=== PATIENT | male | born 1970 | race Caucasian/White ===

== ENCOUNTER 2016-09-06 15:25 | Inpatient (IN) | payer MEDICAID ==
--- NOTE | 2016-09-05 19:45 | NUR ---
Admitted from ED, with chief complaint of LEFT ARM NUMB, HALF LIP NUMB, ABD PAIN, CHEST PAIN, LAST ALCOHOL 7HRS AGO, 46 y/o ,Male, Anxious,saying he wants something for pain, Ativan and ice chips. Informed him orders need to check first. He said " the doctor said I'm ok to have ice chips." Will check the order. Initial assessment done. Vital signs checked. Pt states a, 8/10 chest, abd pain but denies shortness of breath. Plan of care discussed. Pt oriented to call light, bed, phone,television, bathroom, smoking policy, visiting hours, procedures, ID bracelet on. Belongings list checked. Pt wants to keep all his belongings. Informed him that his medication bottle will be kept in the Pharmacy and will be return to him when he gets discharge. Pt agreed. MRSA swab collected.
[~2016-09-06] VITALS: Ht 170.2 cm; Wt 77.1 kg
[2016-09-06 15:33] VITALS: BP 123/91
--- NOTE | 2016-09-06 15:34 | NUR ---
PT PLACED IN BED 5 BY EMS.
--- NOTE | 2016-09-06 15:45 | NUR ---
46/M biba for evaluatin of alcohol intoxication. Pt called 911 with c/o abdominal pain. Pt states "My pancreas hurts and my chest hurts." Patient found hitting his chest and states that makes it feel better. Patient states he drank a pint of alcohol and 5 beers today. Patient denies n/v/d. Patient is AOX3, with slurred speech. Pt is irritable but will follow commands.
--- NOTE | 2016-09-06 16:02 | NUR ---
PATIENT IS A 46 YO MALE BIB EMS FROM [facility]ELD FOR ETOH AND ABDOMINAL PAIN, PATIENT IS AWAKE ON ARRIVAL BUT CONFUSED, UNABLE TO STATE PURPOSE TO BED 5 MD EVAL PENDING.
[2016-09-06] MEDS ORDERED: NACL 0.9% 1,000 ML IV ONE (16:30)
[2016-09-06] MEDS ORDERED: HALOPERIDOL IM 5 MG/ML VIAL IM ONE (16:30)
[2016-09-06] MEDS ORDERED: MULTIVITAMIN-12 10 ML, THIAMINE 100 MG, MAGNESIUM SULFATE 50% 2,000 MG, FOLIC ACID 5 MG... IV ONE (16:30)
[2016-09-06] MEDS ORDERED: diphenhydrAMINE 50 MG/ML VIAL IM ONE (16:30)
--- NOTE | 2016-09-06 16:54 | NUR ---
X-Ray at bedside.
--- NOTE | 2016-09-06 17:18 | NUR ---
Patient appears to be resting comfortably in bed. Vital Signs within normal limits. Respirations even and unlabored. Bed placed in lowest positions. Both side rails up. Pt instructed to call if he needs anything. Pt verbalized understanding. No visible signs of distress noted.
[2016-09-06] MEDS ORDERED: MORPHINE SULFATE 4 MG/ML SYR IVP ONE (17:20)
[2016-09-06] MEDS ORDERED: LIBRIUM25 MG PO (17:25)
--- NOTE | 2016-09-06 18:17 | NUR ---
Called to give report and charge nurse Karuna will call back for report.
--- NOTE | 2016-09-06 18:32 | NUR ---
Note onofre in EDM - 09/06/16 at 1833 by FAY Patient will be admitted to care of Dr. Gee. Admited to M/S. Will go to room 118. Belongings list completed. Report to Karuna.
--- NOTE | 2016-09-06 18:34 | NUR ---
Patient will be admitted to care of Dr. Gee. Admited to M/S. Will go to room 118. Belongings list completed. Report to Karuna.
[2016-09-06] MEDS ORDERED: MORPHINE SULFATE 2 MG/ML SYR IVP PRN (19:10)
[2016-09-06] MEDS ORDERED: HYDROcodone/APAP 5/325 MG 1 TAB TAB PO PRN (19:10)
[2016-09-06] MEDS ORDERED: ONDANSETRON 4 MG/2 ML VIAL IVP PRN (19:10)
[2016-09-06] MEDS ORDERED: ACETAMINOPHEN 325 MG TAB PO PRN (19:10)
[2016-09-06 20:00] VITALS: BP 121/68
[2016-09-06] MEDS: LORazepam 2 MG/ML VIAL IVP PRN (21:18)
[2016-09-06] MEDS ORDERED: PNEUMOCOCCAL VACCINE 23 MCG/0.5 ML VIAL IMVAC SCH (22:00)
--- NOTE | 2016-09-07 | NUR ---
SEEN PT ASLEEP BUT EASILY AROUSABLE. IVF INFUSING WELL. WILL CONTINUE TO MONITOR.
[2016-09-07] MEDS: DEXT 5% /NACL 0.9% 1,000 ML IV SCH ×3 (00:30→11:09)
[2016-09-07 04:00] VITALS: BP 127/79
--- NOTE | 2016-09-07 04:10 | NUR ---
PT CALLED ASKING FOR ATIVAN. SEEN PT AWAKE, APPEARS FLUSHED AND APPEARS SHAKING/TREMORS. VITAL SIGNS CHECKED. TEMP 99.9 WILL RENDER COOLING MEASURES AND ADMINISTER ATIVAN ORDERED. SAFETY REINFORCED. WILL CONTINUE TO MONITOR.
[2016-09-07] MEDS: LORazepam 2 MG/ML VIAL IVP PRN ×2 (04:11→11:03)
[2016-09-07] MEDS ORDERED: INFLUENZA VIRUS VACCINE QUAD 0.5 ML SYR IMVAC SCH (07:25)
[2016-09-07] MEDS ORDERED: PNEUMOCOCCAL VACCINE 23 MCG/0.5 ML VIAL IMVAC SCH (07:25)
--- NOTE | 2016-09-07 07:30 | NUR ---
RECEIVED ON BED AAOX4, NO SOB NOTED. NO C/O PAIN AT THIS TIME. IV TO LEFT FOREARM PATENT AND INTACT. CHEST CLEAR. ABDOMEN SOFT, BOWEL SOUNDS PRESENT. NPO MAINTAINED. INSTRUCTED PT TO CALL FOR ASSISTANCE, CALL LIGHT WITHIN REACH, PT VERBALIZED UNDERSTANDING.
[2016-09-07 08:00] VITALS: BP 131/74
--- NOTE | 2016-09-07 08:14 | NUR ---
PATIENT HAS BEEN SCREENED AND CATEGORIZED MODERATE NUTRITION RISK. PATIENT WILL BE SEEN WITHIN 3-5 DAYS OF ADMISSION. 09/09/16-09/11/[address]
[2016-09-07] MEDS: chlordiazePOXIDE 25 MG CAP PO SCH ×2 (08:52→13:10)
[2016-09-07] MEDS ORDERED: FOLIC ACID 1 MG TAB PO SCH (09:00)
[2016-09-07] MEDS ORDERED: THIAMINE 100 MG TAB PO SCH (09:00)
[2016-09-07] MEDS ORDERED: MULTIVITAMIN 1 TAB PO SCH (09:00)
--- NOTE | 2016-09-07 11:00 | NUR ---
PT AMBULATING IN THE HALLWAY COUPLE TIMES. SHAKING STILL NOTED. ON FALL PRECAUTIONS. ACTIVITY TOLERATED WELL.
--- NOTE | 2016-09-07 14:14 | NUR ---
CM NOTE INITIAL REVIEW FAXED TO [facility] / FAX# [phone]
--- NOTE | 2016-09-07 14:45 | NUR ---
PT WANTS TO GO HOME AGAINST MEDICAL ADVICE. PT STATED HE FELT BETTER AND DO NOT HAVE ANYMORE ABDOMINAL PAIN. AMA AND HOMELESS WAIVER SIGNED. RISKS EXPLAINED TO PT, VERBALIZED UNDERSTANDING. PT STATED HE WILL GO STRAIGHT TO [facility]. NO TREMORS AND SHAKING NOTED. Ann-Marie KENDALL, AWAITING FOR CALL BACK.
--- NOTE | 2016-09-07 14:50 | NUR ---
PT REFUSED PNA AND FLU VACCINE.
--- NOTE | 2016-09-07 14:55 | NUR ---
ARM BANDS AND IV REMOVED, CANNULA TIP INTACT. PT'S HOME MEDS FROM PHARMACY RETURNED TO PT. PT STATED HE CAN NOT WAIT FOR DR. SPENCER TO CALL BACK. ESCORTED PT TO THE FRONT LOBBY, AMBULATORY AND IN STABLE CONDITION. NO COMPLAINTS MADE. PT IS DISCHARGED AGAINST MEDICAL ADVISE.
--- NOTE | 2016-09-07 14:56 | NUR ---
PT REFUSED PNA AND FLU VACCINE. RISKS AND BENEFITS EXPLAINED TO PT, PT VERBALIZED UNDERSTANDING.
--- NOTE | 2016-09-07 15:12 | NUR ---
PAGED DR. MATHEWS TO INFORM HIM REGARDING PT WENT AMA. AWAITING FOR CALL BACK.
--- NOTE | 2016-09-07 16:00 | NUR ---
Ann-Marie KENDALL AND DR. Robyn MATHEWS CALLED BACK AND MADE AWARE OF AMA.
== END 2016-09-07 14:55 | disposition left against medical advice (07) | DRG 282 ==
LOC: MED 15:25 → MTU 18:01
PROVIDERS: ADMIT Preventive Medicine Preventive Medicine/Occupational Environmental Medicine; ATTEND Preventive Medicine Preventive Medicine/Occupational Environmental Medicine
DX: K85.20 Alcohol induced acute pancreatitis without necrosis or infection (principal); D69.6 Thrombocytopenia, unspecified; F10.229 Alcohol dependence with intoxication, unspecified; E83.52 Hypercalcemia; R50.9 Fever, unspecified; D64.9 Anemia, unspecified; Y90.7 Blood alcohol level of 200-239 mg/100 ml; R74.0 Nonspecific elevation of levels of transaminase and lactic acid dehydrogenase [LDH]

== ENCOUNTER 2017-06-01 12:27 | Inpatient (IN) | payer MEDICAID ==
[~2017-06-01] VITALS: Ht 170.2 cm; Wt 72.6 kg
[~2017-06-01 12:27] MED LIST: LIB25 PO
[2017-06-01 12:41] VITALS: BP 131/74
--- NOTE | 2017-06-01 12:46 | NUR ---
Patient ambulatd to bed 02.
--- NOTE | 2017-06-01 12:48 | NUR ---
47/M BIB SELF C/O MID ABDOMINAL PAIN , N/V & SORE THROAT X 1WK . HX PANCREATITIS, ALCOHOL WITHDRAWL. SKIN IS PINK/WARM/DRY; AAOX4 WITH EVEN AND STEADY GAIT; LUNGS CLEAR BL; HR EVEN AND REGULAR; PT DENIES ANY FEVER, CP, SOB, OR COUGH AT THIS TIME; PATIENT STATES PAIN OF 10/10 AT THIS TIME; PATIENT POSITIONED FOR COMFORT; HOB ELEVATED; BEDRAILS UP X2; BED DOWN. ER MD MADE AWARE OF PT STATUS.
--- NOTE | 2017-06-01 13:09 | NUR ---
ER MD DR. BERNAL EVALUATING PT AT BEDSIDE.
--- NOTE | 2017-06-01 13:16 | NUR ---
XRAY at bedside.
[2017-06-01] MEDS ORDERED: HYDROmorphone 1 MG/ML AMP IVP ONE (13:25)
[2017-06-01] MEDS ORDERED: ONDANSETRON 4 MG/2 ML VIAL IVP ONE (13:25)
[2017-06-01 13:39] LABS: BASOPHILS # (AUTO) 0.2 K/uL (0.00-0.22); BASOPHILS % (AUTO) 3.5 % (0.0-2.0); EOSINOPHILS # (AUTO) 0.2 K/uL (0-0.4); HEMATOCRIT 28.5 % (36-52); HEMOGLOBIN 9.1 g/dL (12.0-18.0); LYMPHOCYTES # (AUTO) 1.3 K/uL (2.0-11.5); LYMPHOCYTES % (AUTO) 27.3 % (20.5-51.1); MEAN CORPUSCULAR HEMOGLOBIN 25 pg (27-31); MEAN CORPUSCULAR HGB CONC 32 g/dL (33-37); MEAN CORPUSCULAR VOLUME 79 fL (80-94); MONOCYTES # (AUTO) 0.5 K/uL (0.8-1.0); MONOCYTES % (AUTO) 10.4 % (1.7-9.3); NEUTROPHILS # (AUTO) 2.7 K/uL (1.8-7.7); NEUTROPHILS % (AUTO) 53.8 % (42.2-75.2); PLATELET COUNT (AUTO) 223 K/uL (140-450); RED BLOOD CELL COUNT(AUTO) 3.61 MIL/uL (4.20-6.10); RED CELL DISTRIBUTION WIDTH 22.5 % (11.6-13.7); WHITE BLOOD COUNT (AUTO) 4.9 K/uL (4.8-10.8)
[2017-06-01 13:40] LABS: ANION GAP 15.6 (8-16); CARBON DIOXIDE 23.9 mmol/L (21-32); CREATININE 0.8 mg/dL (0.7-1.3); POTASSIUM 3.5 mmol/L (3.5-5.1)
[2017-06-01 13:45] LABS: ALBUMIN 3.5 g/dL (3.4-5.0); TOTAL BILIRUBIN 0.3 mg/dL (0.0-1.0)
[2017-06-01 13:46] LABS: AMYLASE 66 U/L (25-115); LACTATE DEHYDROGENASE 299 U/L (85-227); LIPASE 1015 U/L (73-393)
[2017-06-01 13:56] LABS: APPEARANCE,URINE CLEAR (CLEAR); BILIRUBIN,URINE NEGATIVE (NEGATIVE); BLOOD, URINE NEGATIVE (NEGATIVE); COLOR,URINE YELLOW (YELLOW); LEUKOCYTE ESTERASE ,URINE NEGATIVE (NEGATIVE); NITRITE, URINE NEGATIVE (NEGATIVE); PH,URINE 5.5 (5.0-9.0); UGLUCOSE NEGATIVE (NEGATIVE)
[2017-06-01 14:03] LABS: BARBITURATE, URINE NEG. ng/ml (NEG <=200); BENZODIAZEPINE, URINE POS. ng/mL (NEG <=200); CANNABINOID, URINE NEG. ng/mL (NEG <=50); COCAINE, URINE NEG. ng/mL (NEG <=300); OPIATE, URINE NEG. ng/mL (NEG <=2000); PHENCYCLIDINE SCREEN,URINE NEG. ng/mL (NEG <=25)
[2017-06-01] MEDS ORDERED: ACETAMINOPHEN 325 MG TAB PO PRN (14:45)
[2017-06-01] MEDS ORDERED: ONDANSETRON 4 MG/2 ML VIAL IVP PRN (14:45)
--- NOTE | 2017-06-01 15:09 | NUR ---
GAVE REPORT TO DOUG SANDERS.
--- NOTE | 2017-06-01 15:09 | NUR ---
Patient will be admitted to care of DR COKER. Admited to TELE. Will go to room 119B. Belongings list completed. Report to GILBERTO.
[2017-06-01 15:31] LABS: FREE T4 (FREE THYROXINE) 0.73 ng/dL (0.76-1.46); MAGNESIUM 1.9 mg/dL (1.8-2.4); PHOSPHORUS 3.6 mg/dL (2.5-4.9); THYROID STIMULATING HORMONE 1.99 uIU/mL (0.34-3.74)
[2017-06-01 15:45] VITALS: BP 136/86
--- NOTE | 2017-06-01 15:45 | NUR ---
RECEIVED PT REPORT AT BEDSIDE FROM NIGHT NURSE. PT IS AAOX4, WITH SLURRED SPEECH, PT ADMITS TO DRINKING EARLIER TODAY AND SHOWS NO S/S OF ACUTE DISTRESS ON RA. PT IS AROUSABLE TO NAME AND DENIES SOB AND PAIN. PT SKIN IS INTACT. PT ON TELE MONITOR. IV NOTED ON THE LT HAND PATENT AND INTACT WITH IVF'S INFUSING WELL. PT WAS EXPLAINED POC FOR TODAY AND VERBALIZE UNDERSTANDING. THE BED IS IN LOW POSITION WITH CALL LIGHT WITHIN REACH. ALL NEED'S MET AT THIS TIME. WILL CONTINUE TO MONITOR.
[2017-06-01] MEDS: NACL 0.9% 1,000 ML IV SCH (16:31)
[2017-06-01] MEDS: LORazepam 2 MG/ML VIAL IVP PRN (16:38)
--- NOTE | 2017-06-01 16:38 | NUR ---
PT C/O FEELING ANXIOUS. ADMINISTERED ATIVAN 2MG IVP.
[2017-06-01] MEDS: HYDROcodone/APAP 7.5/325 MG 1 TAB PO PRN (17:47)
--- NOTE | 2017-06-01 17:47 | NUR ---
PT C/O ABD PAIN AT 6/10 AND CANNOT TOLERATE. PT GIVEN NORCO 7.5/325 MG. WILL REASSESS PAIN IN ONE HR.
--- NOTE | 2017-06-01 18:39 | NUR ---
PT C/O OF 03/26 ABD PAIN, PT STATED, " THE NORCO DOESN'T HELP LIKE IT USED TO" PT HAS DILAUDID 0.5 MG IVP WILL ADMINISTER AND REASSESS IN 30 MIN AFTER ADMINISTRATION.
[2017-06-01] MEDS: HYDROmorphone 1 MG/ML AMP IVP PRN (18:48)
--- NOTE | 2017-06-01 19:20 | NUR ---
GAVE REPORT AT BEDSIDE TO NIGHT NURSE PT ENDORSED IN STABLE CONDITION.
--- NOTE | 2017-06-01 19:25 | NUR ---
RECEIVED REPORT FROM AM NURSE. PT RESTING IN BED, AOX4, AMBULATORY, ABLE TO VERBALIZE NEEDS. SUPERVISOR ENGINES ROAD IN PLACE. PT DENIES CHEST PAIN, SOB OR S/S OF ACUTE DISTRESS. PT C/O ABD PAIN, PT ALREADY MEDICATED BY AM NURSE, WILL MONITOR PAIN. PT C/O VOMITING IN THE AM AND AFTERNOON, DENIES NAUSEA AT THIS TIME, WILL MONITOR. IV ACCESS ASYMPTOMATIC, PATENT AND INTACT. IVF INFUSING WELL. DISCUSSED AND REVIEWED PLAN OF CARE WITH PT. PT VERBALIZED UNDERSTANDING. ALL NEEDS MET. SAFETY MEASURES ENSURED. CALL LIGHT WITHIN REACH. WILL CONTINUE TO MONITOR.
[2017-06-01 20:00] VITALS: BP 123/80
[2017-06-01] MEDS: LORazepam 1 MG TAB PO SCH (20:51)
[2017-06-01] MEDS: DOCUSATE SODIUM 100 MG GELCAP PO SCH (20:51)
--- NOTE | 2017-06-01 20:55 | NUR ---
ADMINISTERED DUE MEDS WITH EDUCATION. PT VERBALIZED UNDERSTANDING, TOLERATED MEDS WELL. ALL NEEDS MET. IVF INFUSING WELL. SAFETY MEASURES ENSURED. CALL LIGHT WITHIN REACH. WILL CONTINUE TO MONITOR.
--- NOTE | 2017-06-01 23:38 | NUR ---
PT SLEEPING COMFORTABLY, NO S/S OF ACUTE DISTRESS. ALL NEEDS MET. IVF INFUSING WELL. SAFETY MEASURES ENSURED. CALL LIGHT WITHIN REACH. WILL CONTINUE TO MONITOR.
[2017-06-02] VITALS: BP 125/88
[2017-06-02] MEDS: NACL 0.9% 1,000 ML IV SCH ×3 (00:15→17:05)
--- NOTE | 2017-06-02 02:11 | NUR ---
PT SLEEPING COMFORTABLY, NO S/S OF ACUTE DISTRESS. ALL NEEDS MET. IVF INFUSING WELL. SAFETY MEASURES ENSURED. CALL LIGHT WITHIN REACH. WILL CONTINUE TO MONITOR.
[2017-06-02] MEDS: HYDROmorphone 1 MG/ML AMP IVP PRN (03:15)
--- NOTE | 2017-06-02 03:20 | NUR ---
PT C/O ABD PAIN, SEE PAIN ASSESSMENT, ADMINISTERED DILAUDID IVP PRN ORDERED WITH EDUCATION. PT VERBALIZED UNDERSTANDING, TOLERATED MED WELL. ALL NEEDS MET. IVF INFUSING WELL. SAFETY MEASURES ENSURED. CALL LIGHT WITHIN REACH. WILL CONTINUE TO MONITOR.
[2017-06-02 04:00] VITALS: BP 130/97
[2017-06-02] MEDS: LORazepam 1 MG TAB PO SCH ×3 (04:05→20:09)
--- NOTE | 2017-06-02 04:10 | NUR ---
PT C/O ITCHING "ALL OVER LEGS, ARMS AND BACK", NO HIVES NOTED, REDNESS NOTED ON AREAS SCRATCHED, PT STATED "I ALWAYS GET ITCHY AFTER PAIN MEDICATION." PT REFUSED MEDICATION FOR ITCHING AT THIS TIME, ASSISTED PT TO BED BATH WITH SLIGHT RELIEF, CALLED DR VNETURA, MADE AWARE, NO CHANGES IN ORDERS AT THIS TIME.
[2017-06-02 06:41] LABS: BASOPHILS # (AUTO) 0.1 K/uL (0.00-0.22); BASOPHILS % (AUTO) 2.1 % (0.0-2.0); EOSINOPHILS # (AUTO) 0.5 K/uL (0-0.4); EOSINOPHILS % (AUTO) 10.3 % (0.0-4.0); HEMATOCRIT 28.7 % (36-52); HEMOGLOBIN 9.1 g/dL (12.0-18.0); LYMPHOCYTES # (AUTO) 1.2 K/uL (2.0-11.5); LYMPHOCYTES % (AUTO) 24.2 % (20.5-51.1); MEAN CORPUSCULAR HEMOGLOBIN 25 pg (27-31); MEAN CORPUSCULAR HGB CONC 32 g/dL (33-37); MEAN CORPUSCULAR VOLUME 80 fL (80-94); MONOCYTES # (AUTO) 0.4 K/uL (0.8-1.0); NEUTROPHILS # (AUTO) 2.7 K/uL (1.8-7.7); NEUTROPHILS % (AUTO) 54.4 % (42.2-75.2); PLATELET COUNT (AUTO) 216 K/uL (140-450); RED BLOOD CELL COUNT(AUTO) 3.59 MIL/uL (4.20-6.10); RED CELL DISTRIBUTION WIDTH 23.1 % (11.6-13.7); WHITE BLOOD COUNT (AUTO) 4.9 K/uL (4.8-10.8)
[2017-06-02 06:58] LABS: ANION GAP 12.6 (8-16); CARBON DIOXIDE 26.9 mmol/L (21-32); CREATININE 0.7 mg/dL (0.7-1.3); POTASSIUM 3.5 mmol/L (3.5-5.1)
[2017-06-02 07:12] LABS: MAGNESIUM 1.7 mg/dL (1.8-2.4); PHOSPHORUS 3.4 mg/dL (2.5-4.9)
--- NOTE | 2017-06-02 07:16 | NUR ---
ENDORSED PLAN OF CARE TO AM NURSE. CONDITION STABLE.
--- NOTE | 2017-06-02 07:20 | NUR ---
RECEIVED REPORT FROM NIGHT RN, PT IN STABLE CONDITION, A/OX4, PT LYING IN BED ON RA, PLAN OF CARE DISCUSSED WITH PT, PT VERBALIZED UNDERSTANDING, DENIES ANY PAIN, NO S/S OF ACUTE DISTRESS, IV PATENT AND INTACT, SAFETY PRECAUTIONS TAKEN, CALL LIGHT WITHIN REACH. WILL CONT TO MONITOR.
[2017-06-02 08:00] VITALS: BP 123/94
[2017-06-02] MEDS: DOCUSATE SODIUM 100 MG GELCAP PO SCH ×2 (08:14→20:09)
[2017-06-02] MEDS: MULTIVITAMIN 1 TAB PO SCH (08:14)
[2017-06-02] MEDS: THIAMINE 100 MG TAB PO SCH (08:14)
[2017-06-02] MEDS: PANTOPRAZOLE 40 MG INJ VIAL IVP SCH (08:15)
[2017-06-02] MEDS: HYDROcodone/APAP 7.5/325 MG 1 TAB PO PRN ×4 (08:15→21:07)
[2017-06-02] MEDS: FOLIC ACID 1 MG TAB PO SCH (08:15)
--- NOTE | 2017-06-02 08:23 | NUR ---
DUE MEDICATIONS GIVEN WITH TEACHING, PT VERBALIZED UNDERSTANDING OF MEDICATION, CALL LIGHT WITHIN REACH, WILL CONT TO MONITOR.
--- NOTE | 2017-06-02 09:01 | NUR ---
PATIENT HAS BEEN SCREENED AND CATEGORIZED HIGH NUTRITION RISK. PATIENT WILL BE SEEN WITHIN 1-2 DAYS OF ADMISSION. 06/02/17-06/03/[address]
[2017-06-02] MEDS: MAGNESIUM CHLORIDE 64 MG TABEC PO SCH (09:39)
--- NOTE | 2017-06-02 11:22 | NUR ---
Clinical review faxed to [facility] at [phone] and faxed to [facility] at [phone]
[2017-06-02 12:00] VITALS: BP 130/90
--- NOTE | 2017-06-02 12:00 | NUR ---
PT LYING IN BED ON RA, PT DENIES PAIN, NO S/S OF ACUTE DISTRESS, CALL LIGHT WITHIN REACH, WILL CONT TO MONITOR.
--- NOTE | 2017-06-02 15:20 | NUR ---
SPOKE TO PATIENT AT BEDSIDE REGARDING DISCHARGE PLAN. PER PATIENT HE WAS STAYING AT HIS FATHERS RESIDENCE IN [place] AND SOMETIMES STAY WITH A FRIEND.USES NO DME AND HAS RECEIVED A LISTING OF PLACES TO GET HELP WITH ETOH. PATIENT STATES HE HAS BEEN AT [facility].
[2017-06-02 16:00] VITALS: BP 130/82
--- NOTE | 2017-06-02 16:00 | NUR ---
PT SITTING UP IN BED ON RA, PT STATES 4/10 PAIN IN ABD, WILL MEDICATE ORDERED, CALL LIGHT WITHIN REACH, NO S/S OF ACUTE DISTRESS, WILL CONT TO MONITOR.
--- NOTE | 2017-06-02 19:18 | NUR ---
ENDORSED PT TO VEGETABLE HARVEST WORKER NURSE AT BEDSIDE FOR CONTINUITY OF CARE, PT STABLE CONDITION.
--- NOTE | 2017-06-02 19:18 | NUR ---
PATIENT IS CURRENTLY RESTING IN BED JUST FINISHED HAVING HIS CLEAR LIQUID DINNER AND SEEMS LIKE THE PATIENT IS TOLERATING IT WELL.PATIENT AMBULATES WELL TO THE BATHROOM AND BACK TO BED.IVF INFUSING WELL IV SITE PATENT. PATIENT CONTINUE TO BE ON FALL PRECAUTIONS AND REFUSED TO HAVE SCD'S TO BOTH LOWER EXTREMITY IN PLACE EDUCATION GIVEN ON THE IMPORTANCE OF WEARING SCD'S FOR DVT PREVENTION PATIENT REFUSED.PATIENT STATES,"IT MAKES ME MORE ANXIOUS."
[2017-06-02 20:00] VITALS: BP 136/95
--- NOTE | 2017-06-02 22:15 | NUR ---
PATIENT WATCHING TV NEEDS MET WILL CONTINUE TO MONITOR.
--- NOTE | 2017-06-03 00:15 | NUR ---
PATIENT CALLED AND SHOWED ME THAT HIS IV LINE CAME OUT.I RESTARTED ANOTHER IV LINE TO RT HAND G#22 WITH GOOD BLOOD RETURN AND IVF CONTINUE TO INFUSE WELL.PATIENT DENIES PAIN CONTINUE TO DRINK ICE CHIPS AND SIPS OF WATER AND HAS NO COMPLAINS OF N/V OR ABD PAIN AT THIS TIME.CALL LIGHT WITHIN REACH WILL CONTINUE TO MONITOR.
[2017-06-03] MEDS: NACL 0.9% 1,000 ML IV SCH ×3 (00:32→16:41)
[2017-06-03] MEDS: HYDROcodone/APAP 7.5/325 MG 1 TAB PO PRN ×4 (01:13→14:49)
--- NOTE | 2017-06-03 01:46 | NUR ---
PATIENT AWAKE WATCHING TV.
--- NOTE | 2017-06-03 02:27 | NUR ---
PATIENT SLEEPING IN BED WILL CONTINUE TO MONITOR.
--- NOTE | 2017-06-03 04:30 | NUR ---
PATIENT IS CURRENTLY RESTING WELL IN BED IN NO DISTRESS WILL CONTINUE TO MONITOR.
[2017-06-03] MEDS: LORazepam 1 MG TAB PO SCH ×3 (04:40→21:31)
[2017-06-03 05:00] VITALS: BP 139/91
--- NOTE | 2017-06-03 06:42 | NUR ---
PATIENT RESTING WELL IN BED.IVF INFUSING WELL IV SITE PATENT.NO COMPLAINS OF PAIN.CONTINUES TO HAVE SCD'S FOR DVT PROPHALAXIS.WILL CONTINUE TO MONITOR.
--- NOTE | 2017-06-03 07:35 | NUR ---
PATIENT STABLE RESTING IN BED NO SEIZURE ACTIVITY NOTED DURING MY SHIFT.REPORT ENDORSED TO MARILYN POWELL SHE WILL RESUME CARE OF THE PATIENT.
--- NOTE | 2017-06-03 07:36 | NUR ---
RECEIVED REPORT FROM THE MENHADEN VESSEL PILOT NURSE AT BEDSIDE FOR CONTINUITY OF CARE. PT AWAKE AND ORIENTED. DEMANDING BREAKFAST, A REG DIET. INTRODUCED MYSELF AND UPDATED THE BOARD. PT V/S WITHIN NORMAL RANGE. C/O SOME ABD PAIN BUT INSISTS ON EATING. HE CLAIMS ITS BC HE HASN'T EATEN. WILL CONTINUE TO MONITOR PT. NO OTHER COMPLAINTS. SAFETY MEASURE IN PLACE.
[2017-06-03 07:38] LABS: BASOPHILS # (AUTO) 0.1 K/uL (0.00-0.22); BASOPHILS % (AUTO) 3.2 % (0.0-2.0); EOSINOPHILS # (AUTO) 0.4 K/uL (0-0.4); EOSINOPHILS % (AUTO) 10.1 % (0.0-4.0); HEMATOCRIT 29.5 % (36-52); HEMOGLOBIN 9.3 g/dL (12.0-18.0); LYMPHOCYTES # (AUTO) 1.2 K/uL (2.0-11.5); LYMPHOCYTES % (AUTO) 26.7 % (20.5-51.1); MEAN CORPUSCULAR HEMOGLOBIN 26 pg (27-31); MEAN CORPUSCULAR HGB CONC 32 g/dL (33-37); MEAN CORPUSCULAR VOLUME 81 fL (80-94); MONOCYTES # (AUTO) 0.6 K/uL (0.8-1.0); MONOCYTES % (AUTO) 12.6 % (1.7-9.3); NEUTROPHILS # (AUTO) 2.1 K/uL (1.8-7.7); NEUTROPHILS % (AUTO) 47.4 % (42.2-75.2); PLATELET COUNT (AUTO) 204 K/uL (140-450); RED BLOOD CELL COUNT(AUTO) 3.64 MIL/uL (4.20-6.10); WHITE BLOOD COUNT (AUTO) 4.4 K/uL (4.8-10.8)
[2017-06-03 08:00] VITALS: BP 132/89
[2017-06-03 08:02] LABS: ANION GAP 9.9 (8-16); CARBON DIOXIDE 28.6 mmol/L (21-32); CREATININE 0.7 mg/dL (0.7-1.3); POTASSIUM 3.5 mmol/L (3.5-5.1)
[2017-06-03 08:14] LABS: MAGNESIUM 1.7 mg/dL (1.8-2.4); PHOSPHORUS 3.5 mg/dL (2.5-4.9)
[2017-06-03] MEDS: MAGNESIUM CHLORIDE 64 MG TABEC PO SCH (09:17)
[2017-06-03] MEDS: FOLIC ACID 1 MG TAB PO SCH (09:17)
[2017-06-03] MEDS: MULTIVITAMIN 1 TAB PO SCH (09:18)
[2017-06-03] MEDS: THIAMINE 100 MG TAB PO SCH (09:18)
[2017-06-03] MEDS: DOCUSATE SODIUM 100 MG GELCAP PO SCH ×2 (09:18→21:30)
[2017-06-03] MEDS: PANTOPRAZOLE 40 MG INJ VIAL IVP SCH (09:21)
--- NOTE | 2017-06-03 09:25 | NUR ---
ADMINISTERED MORNING MEDS. PT TOLERATED WELL. NO COMPLAINTS AT THIS TIME. WILL CONTINUE TO MONITOR PT.
[2017-06-03] MEDS ORDERED: SIMETHICONE 80 MG TAB.CHEW PO PRN (09:50)
[2017-06-03] MEDS ORDERED: SIMETHICONE 80 MG TAB.CHEW PO SCH (09:50)
--- NOTE | 2017-06-03 10:15 | NUR ---
ADMINISTERED NAUSEA MED REQUESTED. PT TOLERATED WELL. WILL CONTINUE TO MONITOR PT.
--- NOTE | 2017-06-03 12:39 | NUR ---
ENDORSED PT TO THE MARILYN PETIT. PT IN STABLE CONDITION.
--- NOTE | 2017-06-03 12:40 | NUR ---
RECEIVED REPORT FROM MARILYN WOLF. PATIENT IS AAOX4, HAS NO SIGNS AND SYMPTOMS OF ACUTE DISTRESS NOTED AT THIS TIME. HAS IV TO RIGHT HAND 22G SALINE LOCK. MARYANN TOLD ME THAT HE REFUSED HAVING HIS FLUIDS. SITE IS CLEAN, DRY, PATENT AND INTACT. SKIN IS INTACT. SEIZURE PRECAUTIONS IN PLACE. BED IN LOWEST POSITION, SIDERAILS UP X2 WITH PADDING, CALL LIGHT PLACED WITHIN REACH. DISCUSSED PLAN OF CARE WITH PATIENT, HE VERBALIZED UNDERSTANDING. WILL CONTINUE TO MONITOR.
--- NOTE | 2017-06-03 13:55 | NUR ---
06/03/17 RD INITIAL ASSESSMENT COMPLETED PLEASE REFER TO NUTRITION ASSESSMENT UNDER CARE ACTIVITY FOR ESTIMATED NUTRITIONAL NEEDS. RD RECOMMENDATIONS: 1. CONTINUE FULL LIQUID DIET MEDICALLY APPROPRIATE. IF/WHEN PT IS MEDICALLY STABLE TO ADVANCE DIET, CONSIDER LOW FAT DIET D/T PT WITH PANCREATITIS. 2. RD PROVIDED GENERAL HEALTHY EATING HANDOUT TO PT, PT ACCEPTED. 3. RD WILL F/U 3-5 DAYS; MODERATE RISK. KIRSTY DRISCOLL RD
--- NOTE | 2017-06-03 14:49 | NUR ---
PATIENT STATED HE HAS A 5/10 PAIN, WILL ADMINISTER NORCO AND SIMETHICONE ORDERED.
--- NOTE | 2017-06-03 15:00 | NUR ---
DR LOBO SPOKE WITH PATIENT AND PLACED HIM ON NPO EXCEPT MEDS AT THIS TIME. WILL CONTINUE TO MONITOR.
[2017-06-03] MEDS ORDERED: KETOROLAC 15 MG/ML VIAL IVP SCH (15:15)
[2017-06-03] MEDS ORDERED: MAG SULF 2000 MG/WATER PREMIX 50 ML IV ONE (15:20)
--- NOTE | 2017-06-03 15:36 | NUR ---
GAVE PATIENT IV TORADOL ORDERED FOR PAIN. WILL CONTINUE TO MONITOR.
--- NOTE | 2017-06-03 15:50 | NUR ---
DR LOBO SPOKE WITH PATIENT ABOUT WANTING TO START TAKING AN ANTIDEPRESSANT, PATIENT STATED THAT HE RECENTLY HAS HAD SOME DEPRESSION AND WOULD LIKE TO START TAKING SOMETHING FOR DEPRESSION. DR LOBO INFORMED PATIENT OF SIDE EFFECTS FROM SPECIFIC MEDICATION THAT SHE WILL BE PRESCRIBING. PATIENT VERBALIZED UNDERSTANDING.
[2017-06-03 16:00] VITALS: BP 112/76
[2017-06-03] MEDS ORDERED: FLUoxetine 20 MG CAP PO SCH (16:25)
[2017-06-03] MEDS: FLUoxetine 20 MG CAP PO SCH (16:40)
--- NOTE | 2017-06-03 16:45 | NUR ---
ADMINISTERED PROZAC TO PATIENT. TOLERATED WELL. WILL CONTINUE TO MONITOR.
--- NOTE | 2017-06-03 19:25 | NUR ---
ENDORSED PATIENT TO YARROW GATHERER RN FOR CONTINUITY OF CARE. PATIENT IN STABLE CONDITION.
--- NOTE | 2017-06-03 19:27 | NUR ---
RECEIVED REPORT FROM DAY SHIFT NURSE. PT LYING COMFORTABLY IN BED. AAOX4. IV TO RIGHT HAND #20G WITH NS AT 125 ML/HR. DISCUSSED PLAN OF CARE, PT VERBALIZED UNDERSTANDING. WILL CONTINUE TO MONITOR. CALL LIGHT WITHIN REACH.
--- NOTE | 2017-06-03 21:00 | NUR ---
PT LYING IN BED. NO DISTRESS NOTED. CALL LIGHT WITHIN REACH.
[2017-06-03] MEDS: HYDROcodone/APAP 10/325 MG 1 TAB TAB PO PRN (21:31)
--- NOTE | 2017-06-03 23:05 | NUR ---
PT AWAKE, LYING IN BED. NO C/O DISCOMFORT OR PAIN. ALL NEEDS MET AT THIS TIME. CALL LIGHT WITHIN REACH.
[2017-06-04] VITALS: BP 124/84
[2017-06-04] MEDS: NACL 0.9% 1,000 ML IV SCH ×2 (00:32→08:32)
--- NOTE | 2017-06-04 01:50 | NUR ---
PT ASLEEP. NO S/S DISTRESS NOTED. CALL LIGHT WITHIN REACH.
--- NOTE | 2017-06-04 03:45 | NUR ---
PT SLEEPING. NO S/S OF PAIN OR DISCOMFORT. CALL LIGHT WITHIN REACH.
[2017-06-04] MEDS: LORazepam 1 MG TAB PO SCH ×2 (04:53→13:23)
[2017-06-04] MEDS: HYDROcodone/APAP 10/325 MG 1 TAB TAB PO PRN ×2 (05:22→13:23)
--- NOTE | 2017-06-04 05:25 | NUR ---
PT C/O PAIN. PAIN LEVEL OF 7/10. NORCO 10/325MG GIVEN ORDERED. ALL NEEDS MET AT THIS TIME. CALL LIGHT WITHIN REACH
--- NOTE | 2017-06-04 07:17 | NUR ---
ENDORSED PT TO DAY SHIFT NURSE. PT IN STABLE CONDITION.
--- NOTE | 2017-06-04 07:18 | NUR ---
RECEIVED REPORT FROM INVENTORY ASSISTANT NURSE TREMAYNE AT BEDSIDE FOR CONTINUITY OF CARE. PT IS AWAKE AND ORIENTED. INTRODUCED SELF AND UPDATED BOARD. PT IS TALKING ON PHONE RIGHT NOW. NO SIGNS OF DISTRESS. PT STATED THAT HE HAS SOME ABD PAIN. PT IS STILL NPO. PT AWARE THAT HE WILL BE NPO UNTIL BREAKFAST.
[2017-06-04 08:00] VITALS: BP 125/81
[2017-06-04] MEDS: PANTOPRAZOLE 40 MG INJ VIAL IVP SCH (08:51)
[2017-06-04] MEDS: MULTIVITAMIN 1 TAB PO SCH (08:52)
[2017-06-04] MEDS: FOLIC ACID 1 MG TAB PO SCH (08:52)
[2017-06-04] MEDS: LORazepam 2 MG/ML VIAL IVP PRN (08:52)
[2017-06-04] MEDS: MAGNESIUM CHLORIDE 64 MG TABEC PO SCH (08:52)
[2017-06-04] MEDS: THIAMINE 100 MG TAB PO SCH (08:52)
--- NOTE | 2017-06-04 08:52 | NUR ---
ADMINISTERED ATIVAN 2MG. PT WAS STATING HE WAS FELLING ANXIOUS. ASKING ABOUT WHEN HE CAN HAVE SOMETHING TO EAT. TOLD PT WILL COME SEE HIM AND ADVANCE DIET TOLERATED. PT STILL ASKING ABOUT WHEN HE CAN EAT. INFORMED HIM NOT RIGHT NOW BUT AT LUNCH TIME.
[2017-06-04] MEDS: DOCUSATE SODIUM 100 MG GELCAP PO SCH (08:53)
[2017-06-04] MEDS: FLUoxetine 20 MG CAP PO SCH (08:53)
[2017-06-04 11:32] LABS: BASOPHILS # (AUTO) 0.2 K/uL (0.00-0.22); BASOPHILS % (AUTO) 3.7 % (0.0-2.0); EOSINOPHILS # (AUTO) 0.4 K/uL (0-0.4); EOSINOPHILS % (AUTO) 8.4 % (0.0-4.0); HEMATOCRIT 29.6 % (36-52); HEMOGLOBIN 9.4 g/dL (12.0-18.0); LYMPHOCYTES # (AUTO) 1.4 K/uL (2.0-11.5); LYMPHOCYTES % (AUTO) 32.7 % (20.5-51.1); MEAN CORPUSCULAR HEMOGLOBIN 26 pg (27-31); MEAN CORPUSCULAR HGB CONC 32 g/dL (33-37); MEAN CORPUSCULAR VOLUME 82 fL (80-94); MONOCYTES # (AUTO) 0.6 K/uL (0.8-1.0); MONOCYTES % (AUTO) 14.3 % (1.7-9.3); NEUTROPHILS # (AUTO) 1.7 K/uL (1.8-7.7); NEUTROPHILS % (AUTO) 40.9 % (42.2-75.2); PLATELET COUNT (AUTO) 218 K/uL (140-450); RED BLOOD CELL COUNT(AUTO) 3.63 MIL/uL (4.20-6.10); RED CELL DISTRIBUTION WIDTH 24.1 % (11.6-13.7); WHITE BLOOD COUNT (AUTO) 4.3 K/uL (4.8-10.8)
[2017-06-04 11:53] LABS: ANION GAP 11.2 (8-16); CARBON DIOXIDE 28.5 mmol/L (21-32); CREATININE 0.7 mg/dL (0.7-1.3); POTASSIUM 3.7 mmol/L (3.5-5.1)
[2017-06-04 11:56] LABS: MAGNESIUM 2.1 mg/dL (1.8-2.4)
--- NOTE | 2017-06-04 13:00 | NUR ---
PT WAS GETTING READY TO GO HOME. INFORMED PT THAT WILL HAVE TO WAIT FOR D/C ORDER BEFORE HE CAN LEAVE. PT SAID OK TO WAIT FOR ORDER AND GET INSTRUCTIONS AND RX TO TAKE HOME. PT'S MOM IS AT BEDSIDE. STATED SHE HAS TO LEAVE AND CANNOT RIVETER HELPER PT LATER. AWARE THAT HE CAN GET A BUS PASS FOR TRANSPORTATION ONCE DISCHARGED. PT AND MOM VERBALIZED UNDERSTANDING. PT WILL WAIT FOR TIME TO LEAVE. NO SIGNS OF DISTRESS. WILL CONTINUE TO MONITOR.
[2017-06-04] MEDS ORDERED: FLUO-348 PO ×2 (14:18→14:45)
[2017-06-04] MEDS ORDERED: SIME80CT27 PO ×2 (14:18→14:45)
[2017-06-04] MEDS ORDERED: DOCU-299 PO ×2 (14:18→14:45)
[2017-06-04] MEDS ORDERED: NORC10 PO ×2 (14:18→14:45)
[2017-06-04] MEDS ORDERED: IBUP-2218 PO (14:31)
[2017-06-04] MEDS ORDERED: IBUP-2217 PO (14:45)
[2017-06-04] MEDS ORDERED: MULT-405 PO (14:45)
--- NOTE | 2017-06-04 15:40 | NUR ---
PT D/C'D TO GO HOME. D/C INSTRUCTIONS WITH RX, HOMELESS AND ALCOHOL AND SUBSTANCE ABUSE REFERRALS GIVEN. PT SIGNED HOMELESS WAIVER FORM AND D/C FORMS. VERBALIZED UNDERSTANDING. IV CATHETER REMOVED FROM RIGHT HAND 223. IV CATHETER TIP INTACT. APPLIED DRESSING TO SITE. NO BLEEDING NOTED. REMOVED ID BAND. PT CHANGED IN OWN CLOTHES AND LEFT WITH ALL PERSONAL BELONGINGS AND D/C AND RESOURCE PACKET. PT LEFT UNIT VIA AMBULATION ACCOMPANIED BY RN. PT LEFT IN STABLE CONDITION. BUS PASS GIVEN FOR PT TRANSPORT SINCE PT'S MOM UNABLE TO COMMUNITY HEALTH COORDINATOR.
== END 2017-06-04 15:40 | disposition home or self-care (01) | DRG 775 ==
LOC: MED 12:27 → MTU 14:52
PROVIDERS: ADMIT Family Medicine; ATTEND Family Medicine
DX: F10.229 Alcohol dependence with intoxication, unspecified (principal); G92 Toxic encephalopathy; K85.20 Alcohol induced acute pancreatitis without necrosis or infection; F33.2 Major depressive disorder, recurrent severe without psychotic features; K86.1 Other chronic pancreatitis; E83.42 Hypomagnesemia; E83.51 Hypocalcemia; D50.9 Iron deficiency anemia, unspecified; F15.10 Other stimulant abuse, uncomplicated; E86.0 Dehydration; E03.9 Hypothyroidism, unspecified; Z87.891 Personal history of nicotine dependence; Y90.2 Blood alcohol level of 40-59 mg/100 ml; Z59.0 Homelessness; Z79.899 Other long term (current) drug therapy; Z71.41 Alcohol abuse counseling and surveillance of alcoholic
CPT/HCPCS: 36415; 71010; 76700; 80048; 80053; 80305; 81003; 82140; 82150; 83036; 83605; 83615; 83690; 83735; 83880; 84100; 84439; 84443; 84484; 85025; 85610; 85730; 87081; 96374; 96375; 99285; C9113; G0482; J1170; J1885; J2060; J2405; J3475; J7030; Q0092

== ENCOUNTER 2018-06-07 23:45 | Emergency (ER) | payer MEDICAID ==
[~2018-06-07] VITALS: Ht 170.2 cm; Wt 72.6 kg
[~2018-06-07 23:45] MED LIST changes: +DOCU-299 PO; +FLUO-348 PO; +IBUP-2217 PO; -LIB25 PO; +MULT-405 PO; +NORC10 PO; +SIME80CT27 PO
[2018-06-07 23:51] VITALS: BP 125/92
[2018-06-08] MEDS: NACL 0.9% 1,000 ML IV ONE (00:17)
[2018-06-08] MEDS: chlordiazePOXIDE 25 MG CAP PO SCH (00:18)
[2018-06-08 00:24] LABS: BASOPHILS # (AUTO) 0.2 K/uL (0.00-0.22); BASOPHILS % (AUTO) 4.2 % (0.0-2.0); EOSINOPHILS # (AUTO) 0.2 K/uL (0-0.4); EOSINOPHILS % (AUTO) 3.6 % (0.0-4.0); HEMATOCRIT 28.3 % (36-52); HEMOGLOBIN 8.6 g/dL (12.0-18.0); LYMPHOCYTES # (AUTO) 2.2 K/uL (2.0-11.5); LYMPHOCYTES % (AUTO) 47.6 % (20.5-51.1); MEAN CORPUSCULAR HEMOGLOBIN 23 pg (27-31); MEAN CORPUSCULAR HGB CONC 30 g/dL (33-37); MEAN CORPUSCULAR VOLUME 74.5 fL (80-94); MONOCYTES # (AUTO) 0.7 K/uL (0.8-1.0); MONOCYTES % (AUTO) 14.6 % (1.7-9.3); NEUTROPHILS # (AUTO) 1.4 K/uL (1.8-7.7); PLATELET COUNT (AUTO) 173 K/uL (140-450); RED BLOOD CELL COUNT(AUTO) 3.79 MIL/uL (4.20-6.10); WHITE BLOOD COUNT (AUTO) 4.7 K/uL (4.8-10.8)
[2018-06-08 00:47] LABS: ANION GAP 14.4 (8-16); CARBON DIOXIDE 26.4 mmol/L (21-32); CREATININE 0.7 mg/dL (0.7-1.3); POTASSIUM 3.8 mmol/L (3.5-5.1)
[2018-06-08 00:58] LABS: RED CELL DISTRIBUTION WIDTH 26.4 % (11.6-13.7)
[2018-06-08 02:36] VITALS: BP 125/92
== END 2018-06-08 02:36 | disposition home or self-care (01) ==
LOC: MED 23:45
DX: F10.239 Alcohol dependence with withdrawal, unspecified (principal); K70.10 Alcoholic hepatitis without ascites; K86.0 Alcohol-induced chronic pancreatitis; Z79.1 Long term (current) use of non-steroidal anti-inflammatories (NSAID); Z79.899 Other long term (current) drug therapy
CPT/HCPCS: 36415; 80048; 83690; 85025; 99283; J7030; 96360; 96361

== ENCOUNTER 2018-06-14 00:52 | Emergency (ER) | payer MEDICAID ==
[~2018-06-14] VITALS: Ht 170.2 cm; Wt 76.2 kg
[2018-06-14 01:03] VITALS: BP 115/73
[2018-06-14 02:15] LABS: BASOPHILS # (AUTO) 0.2 K/uL (0.00-0.22); BASOPHILS % (AUTO) 3.5 % (0.0-2.0); EOSINOPHILS # (AUTO) 0.1 K/uL (0-0.4); EOSINOPHILS % (AUTO) 3.1 % (0.0-4.0); HEMATOCRIT 24.5 % (36-52); HEMOGLOBIN 7.6 g/dL (12.0-18.0); LYMPHOCYTES # (AUTO) 2.2 K/uL (2.0-11.5); LYMPHOCYTES % (AUTO) 51.5 % (20.5-51.1); MEAN CORPUSCULAR HEMOGLOBIN 23 pg (27-31); MEAN CORPUSCULAR HGB CONC 31 g/dL (33-37); MONOCYTES # (AUTO) 0.6 K/uL (0.8-1.0); MONOCYTES % (AUTO) 13.1 % (1.7-9.3); NEUTROPHILS # (AUTO) 1.3 K/uL (1.8-7.7); NEUTROPHILS % (AUTO) 28.8 % (42.2-75.2); PLATELET COUNT (AUTO) 150 K/uL (140-450); RED BLOOD CELL COUNT(AUTO) 3.36 MIL/uL (4.20-6.10); WHITE BLOOD COUNT (AUTO) 4.4 K/uL (4.8-10.8)
[2018-06-14 02:27] LABS: ANION GAP 11.8 (8-16); CARBON DIOXIDE 29.2 mmol/L (21-32); CREATININE 0.7 mg/dL (0.7-1.3)
[2018-06-14 02:29] LABS: RED CELL DISTRIBUTION WIDTH 25.8 % (11.6-13.7)
[2018-06-14 02:33] LABS: ALBUMIN 3.4 g/dL (3.4-5.0); TOTAL BILIRUBIN 0.3 mg/dL (0.0-1.0)
[2018-06-14] MEDS: PANTOPRAZOLE 40 MG INJ VIAL IVP ONE (02:33)
[2018-06-14] MEDS: ONDANSETRON 4 MG/2 ML VIAL IVP ONE (02:33)
[2018-06-14] MEDS: NACL 0.9% 1,000 ML IV ONE (02:33)
== END 2018-06-14 02:27 | disposition home or self-care (01) ==
LOC: MED 00:52
DX: K29.20 Alcoholic gastritis without bleeding (principal); F10.229 Alcohol dependence with intoxication, unspecified; D64.9 Anemia, unspecified; D72.819 Decreased white blood cell count, unspecified; Y90.8 Blood alcohol level of 240 mg/100 ml or more; Z79.899 Other long term (current) drug therapy; Z79.1 Long term (current) use of non-steroidal anti-inflammatories (NSAID)
CPT/HCPCS: 36415; 71045; 80053; 83690; 84484; 85025; 93005; 99284; C9113; G0482; J2405; J7030; Q0092

== ENCOUNTER 2018-06-26 18:46 | Emergency (ER) | payer MEDICAID ==
--- NOTE | 2018-06-26 18:56 | NUR ---
PATIENT BIB EMS FROM [facility]ELD FOR ETOH ON ARRIVAL HE IS AWAKE AND ALERT ABLE TO ANSWER QUESTIONS, X 4. HE REFUSES TO STAY AND IS WILLING TO SIGN AMA. DR BARRAZA MADE AWARE AND AGREES. PATIENT ABLE TO AMBULATE WITH STEADY GAIT. AND HAS A PLAN HE WILL WALK TO HIS MOTHERS HOUSE 1 BLOCK AWAY. SIGNED AMA FORM GIVEN BELONGINGS AND LEFT VAI DOOR WITH STEADY GAIT.
== END 2018-06-26 18:56 | disposition left against medical advice (07) ==
LOC: MED 18:46
DX: F10.10 Alcohol abuse, uncomplicated (principal)
CPT/HCPCS: 99283

== ENCOUNTER 2018-07-18 20:22 | Emergency (ER) | payer MEDICAID ==
[~2018-07-18] VITALS: Ht 177.8 cm; Wt 79.4 kg
[2018-07-18 20:29] VITALS: BP 118/75
--- NOTE | 2018-07-18 20:33 | NUR ---
PT TO ER LOBBY VIA W/C IN STABLE CONDITION.
--- NOTE | 2018-07-18 22:45 | NUR ---
PT TO ER BED 12
--- NOTE | 2018-07-18 23:00 | NUR ---
48/M BIBA. PT C/O 02/23 EPIGASTRIC PAIN, RADIATING TO L ABD, X1 DAY. PT REPORTS "LITTLE BIT" CHEST WALL PAIN. PT AOX4, GCS 15, RR EVEN AND UNLABORED. PT REPORTS ETOH USE TODAY OF "BEER AND VODKA." PT DENIES SOB, N/V. LUNG SOUNDS CLEAR BL. BS ACTIVE X4, ABD SOFT ROUND NONTENDER. PT IS HOMELESS, POOR HYGIENE NOTED, NONCOMPLIANCE. PT PLACED ON MONITOR. HX PANCREATITIS, CIRRHOSIS, SEIZURE RX NONCOMPLIANCE
[2018-07-18] MEDS ORDERED: KETOROLAC 30 MG/ML VIAL IVP ONE (23:30)
[2018-07-18] MEDS ORDERED: NACL 0.9% 1,000 ML IV ONE (23:30)
[2018-07-18] MEDS ORDERED: PANTOPRAZOLE 40 MG INJ VIAL IVP ONE (23:30)
[2018-07-18] MEDS ORDERED: ONDANSETRON 4 MG/2 ML VIAL IVP ONE (23:30)
--- NOTE | 2018-07-18 23:45 | NUR ---
PT SLEEPING IN BED, SPO2 85% ON ROOM AIR, POSSIBLE SLEEP APNEA NOTED. PLACED ON O2 2L NC, SPO2 100%. PT AROUSABLE TO TOUCH, RR EVEN AND UNLABORED. ALL NEEDS MET AT THIS TIME.
--- NOTE | 2018-07-18 23:48 | NUR ---
LAB AT BEDSIDE.
[2018-07-19 00:06] LABS: BASOPHILS # (AUTO) 0.1 K/uL (0.00-0.22); BASOPHILS % (AUTO) 2.2 % (0.0-2.0); EOSINOPHILS # (AUTO) 0.2 K/uL (0-0.4); EOSINOPHILS % (AUTO) 4.2 % (0.0-4.0); HEMATOCRIT 27.1 % (36-52); HEMOGLOBIN 8.3 g/dL (12.0-18.0); LYMPHOCYTES # (AUTO) 1.7 K/uL (2.0-11.5); MEAN CORPUSCULAR HEMOGLOBIN 23 pg (27-31); MEAN CORPUSCULAR HGB CONC 31 g/dL (33-37); MEAN CORPUSCULAR VOLUME 75.6 fL (80-94); MONOCYTES # (AUTO) 0.6 K/uL (0.8-1.0); NEUTROPHILS # (AUTO) 2.6 K/uL (1.8-7.7); NEUTROPHILS % (AUTO) 49.6 % (42.2-75.2); PLATELET COUNT (AUTO) 198 K/uL (140-450); RED BLOOD CELL COUNT(AUTO) 3.58 MIL/uL (4.20-6.10); WHITE BLOOD COUNT (AUTO) 5.3 K/uL (4.8-10.8)
[2018-07-19 00:18] LABS: RED CELL DISTRIBUTION WIDTH 21.4 % (11.6-13.7)
[2018-07-19 00:20] LABS: ANION GAP 17.5 (8-16); CARBON DIOXIDE 26.3 mmol/L (21-32); CREATININE 0.9 mg/dL (0.7-1.3); POTASSIUM 3.8 mmol/L (3.5-5.1)
--- NOTE | 2018-07-19 00:23 | NUR ---
PT LAYING IN BED, SLEEPING, AROUSABLE TO NAME, RR EVEN AND UNLABORED. VSS. ALL NEEDS MET AT THIS TIME.
[2018-07-19 00:27] LABS: ALBUMIN 3.5 g/dL (3.4-5.0); TOTAL BILIRUBIN 0.2 mg/dL (0.0-1.0)
--- NOTE | 2018-07-19 02:19 | NUR ---
PT LAYING IN BED, PT SLEEPING, AROUSABLE TO NAME, VSS, RR EVEN AND UNLABORED. ALL NEEDS MET AT THIS TIME.
[2018-07-19 03:46] VITALS: BP 111/77
--- NOTE | 2018-07-19 03:46 | NUR ---
Patient discharged with v/s stable. Written and verbal after care instructions given and explained. Patient alert, oriented and verbalized understanding of instructions. Ambulatory with . All questions addressed prior to discharge. ID band removed. Patient advised to follow up with PMD. Rx of PROTONIX given. Patient educated on indication of medication including possible reaction and side effects. Opportunity to ask questions provided and answered.
== END 2018-07-19 03:46 | disposition home or self-care (01) ==
LOC: MED 20:22
DX: K29.20 Alcoholic gastritis without bleeding (principal); Z79.899 Other long term (current) drug therapy; R63.0 Anorexia
CPT/HCPCS: 36415; 80053; 83690; 85025; 93005; 96361; 96374; 96375; 99284; C9113; J1885; J2405; J7030

== ENCOUNTER 2018-08-12 20:26 | Emergency (ER) | payer MEDICAID ==
[~2018-08-12] VITALS: Ht 170.2 cm; Wt 77.1 kg
[2018-08-12 20:26] VITALS: BP 120/74
--- NOTE | 2018-08-12 20:26 | NUR ---
PT CASTRO BLS. TAKEN TO BED 8
--- NOTE | 2018-08-12 21:00 | NUR ---
HX OF SEIZURES X3 YRS AGO WHEN IN REHAB.
--- NOTE | 2018-08-12 21:00 | NUR ---
PT BIB [facility] C/O 01/23 ABD PAIN, +N/V X1 WEEK. PT DRANK BEER AND VODKA TODAY AND STARTED THROWING UP. CHRONIC ABD PAIN. PT STATES HE IS DEPRESSED FROM LOSING HIS , DENIES HARM TO SELF OR OTHERS. SKIN IS PINK/WARM/DRY; AAOX4 WITH EVEN AND STEADY GAIT; LUNGS CLEAR BL; HR EVEN AND REGULAR; PT DENIES ANY FEVER, CP, SOB, OR COUGH AT THIS TIME; VSS; PATIENT POSITIONED FOR COMFORT; HOB ELEVATED; BEDRAILS UP X2; BED DOWN. ER MD MADE AWARE OF PT STATUS. PMH: PANCREATITIS, CIRRHOSIS RX: ATIVAN, LIVIUM
--- NOTE | 2018-08-12 21:53 | NUR ---
Dr. Regalado evaluating patient at bedside.
[2018-08-12] MEDS ORDERED: NACL 0.9% 1,000 ML IV ONE (22:15)
[2018-08-12 22:44] LABS: BASOPHILS # (AUTO) 0.2 K/uL (0.00-0.22); EOSINOPHILS # (AUTO) 0.3 K/uL (0-0.4); EOSINOPHILS % (AUTO) 4.9 % (0.0-4.0); HEMATOCRIT 26.1 % (36-52); HEMOGLOBIN 8.1 g/dL (12.0-18.0); LYMPHOCYTES # (AUTO) 2.5 K/uL (2.0-11.5); LYMPHOCYTES % (AUTO) 48.5 % (20.5-51.1); MEAN CORPUSCULAR HEMOGLOBIN 23 pg (27-31); MEAN CORPUSCULAR HGB CONC 31 g/dL (33-37); MEAN CORPUSCULAR VOLUME 75.3 fL (80-94); MONOCYTES # (AUTO) 0.7 K/uL (0.8-1.0); MONOCYTES % (AUTO) 13.6 % (1.7-9.3); NEUTROPHILS # (AUTO) 1.5 K/uL (1.8-7.7); PLATELET COUNT (AUTO) 207 K/uL (140-450); RED BLOOD CELL COUNT(AUTO) 3.47 MIL/uL (4.20-6.10); RED CELL DISTRIBUTION WIDTH 20.3 % (11.6-13.7); WHITE BLOOD COUNT (AUTO) 5.1 K/uL (4.8-10.8)
[2018-08-12 22:48] LABS: ANION GAP 11.9 (8-16); CREATININE 0.8 mg/dL (0.7-1.3); POTASSIUM 3.9 mmol/L (3.5-5.1)
[2018-08-12 22:55] LABS: ALBUMIN 3.6 g/dL (3.4-5.0); TOTAL BILIRUBIN 0.2 mg/dL (0.0-1.0)
[2018-08-12] MEDS ORDERED: PANTOPRAZOLE 40 MG INJ VIAL IVP ONE (23:55)
--- NOTE | 2018-08-13 01:20 | NUR ---
Call to [facility], gave report to Nurse Business Analyst Intern Gallito Patient to be transferred/admitted for GI bleed and Pancreatitis. Is being transferred due to insurance request. Receiving facility has accepting physician and available space. ER physician has signed transfer form. Patient or responsible democrat has agreed to transfer and signed form. Patient belongings inventoried and will be sent with patient. Copy of nursing notes, lab reports, EKG, Physicians Orders and X-rays to be sent with patient. Report called to Gallito RN at receiving facility. [facility] ambulance service has been called for transfer. ETA is 40 min.
--- NOTE | 2018-08-13 02:15 | NUR ---
Pt report given to Margaret with [facility] for transfer to [facility]. Transfer of care at this time. [facility]VS at this time.
--- NOTE | 2018-08-13 02:24 | NUR ---
PT TAKEN BY ZARA TO [facility]
[2018-08-13 02:39] VITALS: BP 128/80
== END 2018-08-13 00:24 | disposition short-term general hospital (02) ==
LOC: MED 20:26
DX: D64.9 Anemia, unspecified (principal); F10.129 Alcohol abuse with intoxication, unspecified; Z79.899 Other long term (current) drug therapy
CPT/HCPCS: 36415; 80053; 81002; 85025; 96374; 99285; C9113; G0482; J7030; 99283

== ENCOUNTER 2018-09-27 03:39 | Emergency (ER) | payer MEDICAID ==
[~2018-09-27] VITALS: Ht 170.2 cm; Wt 77.1 kg
[2018-09-27 03:57] VITALS: BP 116/75
--- NOTE | 2018-09-27 04:01 | NUR ---
PT AMBUALTED TO BED 6 WITH VSS.
[2018-09-27] MEDS ORDERED: ONDANSETRON 4 MG ODT PO ONE (04:10)
--- NOTE | 2018-09-27 04:23 | NUR ---
48/M PRESENTS TO ED, C/O N/V X3-4 TIMES SINCE YESTERDAY MORNING, REPORTS RESOLVED DIARRHEA, REPORTS RESOLVED CP. PT DENIES ANY ABD PAIN, SOB OR FEVER. PT SMELLS OF ETOH, PT ADMITS TO DRINKING "VODKA AND BEER LAST NIGHT." PT AOX4, PERRLA, RR EVEN AND UNLABORED, SKIN WARM DRY AND FLUSHED. LUNG SOUNDS CLEAR BL. BS ACTIVE X4, ABD SOFT ROUND NONTENDER. HX PANCREATITIS, CIRRHOSIS, ALCOHOL ABUSE RX LIBRIUM
--- NOTE | 2018-09-27 04:27 | NUR ---
Dr. Hayes evaluating patient at bedside.
--- NOTE | 2018-09-27 04:43 | NUR ---
PT STATED THAT HE CHOOSES TO "GO BACK TO STREETS." PT PROVIDED WITH HOMELESS RESOURCE PACKET AND ALCOHOL ABUSE PACKET. BUS PASS PROVIDED. PT WITH CLOTHING APPROPRIATE FOR WEATHER.
[2018-09-27 04:44] VITALS: BP 116/75
== END 2018-09-27 04:44 | disposition home or self-care (01) ==
LOC: MED 03:39
DX: R11.2 Nausea with vomiting, unspecified (principal); R19.7 Diarrhea, unspecified
CPT/HCPCS: 99283; Q0162

== ENCOUNTER 2020-11-13 22:11 | Emergency (ER) | payer MEDICAID ==
[~2020-11-13] VITALS: Ht 170.2 cm; Wt 79.4 kg
[~2020-11-13 22:11] MED LIST changes: -FLUO-348 PO; +FLUO20CA33 PO
[2020-11-13 22:15] VITALS: BP 123/85
--- NOTE | 2020-11-13 22:15 | NUR ---
PATIENT TAKEN TO BED 8 VIA GURNEY. PATIENT ABLE TO AMBUALTE TO BED WITH STEADY GAIT. URINAL GIVEN AT BEDSIDE.
--- NOTE | 2020-11-13 22:25 | NUR ---
ENRECEIVED IN BED 8 WITH C/O ALCOHOL INTOXICATION. IS AWAKE AND ALERT, SPEECH IS SLIGHTLY SLURRED. IS PLEASANT AND COOPERATIVE. SANDWICH GIVEN
[2020-11-13] MEDS ORDERED: HYDROcodone/APAP 5/325 MG 1 TAB TAB PO ONE (22:40)
[2020-11-13] MEDS ORDERED: IBUP-2213 PO (23:56)
[2020-11-14 00:10] VITALS: BP 128/74
--- NOTE | 2020-11-14 00:10 | NUR ---
Note onofre in ED - 11/14/20 at 0035 by PILO Patient discharged with v/s stable. Written and verbal after care instructions given and explained. Patient verbalized understanding. Ambulatory with steady gait. All questions addressed prior to discharge. Advised to follow up with PMD.
== END 2020-11-14 00:10 | disposition home or self-care (01) ==
LOC: MED 22:11
DX: M79.605 Pain in left leg (principal); F10.129 Alcohol abuse with intoxication, unspecified; Z98.890 Other specified postprocedural states
CPT/HCPCS: 99283

== ENCOUNTER 2020-12-17 19:48 | Emergency (ER) | payer MEDICAID ==
[~2020-12-17] VITALS: Ht 170.2 cm; Wt 73.5 kg
[~2020-12-17 19:48] MED LIST changes: +IBUP-2213 PO
[2020-12-17 19:50] VITALS: BP 121/81
[2020-12-17 20:29] LABS: BASOPHILS # (AUTO) 0.1 K/uL (0.00-0.22); BASOPHILS % (AUTO) 1.4 % (0.0-2.0); EOSINOPHILS # (AUTO) 0.1 K/uL (0-0.4); EOSINOPHILS % (AUTO) 2.1 % (0.0-4.0); HEMATOCRIT 30.3 % (36-52); HEMOGLOBIN 10.3 g/dL (12.0-18.0); LYMPHOCYTES # (AUTO) 2.6 K/uL (2.0-11.5); LYMPHOCYTES % (AUTO) 40.9 % (20.5-51.1); MEAN CORPUSCULAR HEMOGLOBIN 33 pg (27-31); MEAN CORPUSCULAR HGB CONC 34 g/dL (33-37); MEAN CORPUSCULAR VOLUME 97.4 fL (80-94); MONOCYTES # (AUTO) 0.6 K/uL (0.8-1.0); MONOCYTES % (AUTO) 9.3 % (1.7-9.3); NEUTROPHILS # (AUTO) 2.9 K/uL (1.8-7.7); NEUTROPHILS % (AUTO) 46.3 % (42.2-75.2); PLATELET COUNT (AUTO) 116 K/uL (140-450); RED BLOOD CELL COUNT(AUTO) 3.11 MIL/uL (4.20-6.10); RED CELL DISTRIBUTION WIDTH 13.7 % (11.6-13.7); WHITE BLOOD COUNT (AUTO) 6.4 K/uL (4.8-10.8)
[2020-12-17 20:45] LABS: ANION GAP 12.7 (8-16); CARBON DIOXIDE 25.3 mmol/L (21-32); CREATININE 0.6 mg/dL (0.6-1.3)
[2020-12-17 20:51] LABS: ALBUMIN 2.7 g/dL (3.4-5.0); TOTAL BILIRUBIN 0.6 mg/dL (0.0-1.0)
[2020-12-17 21:12] LABS: APPEARANCE,URINE CLEAR (CLEAR); BILIRUBIN,URINE NEGATIVE (NEGATIVE); BLOOD, URINE NEGATIVE (NEGATIVE); COLOR,URINE YELLOW (YELLOW); LEUKOCYTE ESTERASE ,URINE NEGATIVE (NEGATIVE); NITRITE, URINE NEGATIVE (NEGATIVE); UGLUCOSE NEGATIVE (NEGATIVE)
[2020-12-17 21:57] VITALS: BP 121/81
== END 2020-12-17 21:50 | disposition home or self-care (01) ==
LOC: MED 19:48
DX: G89.29 Other chronic pain (principal); R10.10 Upper abdominal pain, unspecified; M79.605 Pain in left leg; F10.129 Alcohol abuse with intoxication, unspecified; Y90.9 Presence of alcohol in blood, level not specified; Z79.899 Other long term (current) drug therapy
CPT/HCPCS: 36415; 80053; 81003; 83690; 85025; 99283

== ENCOUNTER 2021-05-20 20:44 | Emergency (ER) | payer MEDICAID ==
[~2021-05-20] VITALS: Ht 172.7 cm; Wt 77.1 kg
[~2021-05-20 20:44] MED LIST changes: +FLUO-402 PO; -FLUO20CA33 PO
--- NOTE | 2021-05-20 20:49 | NUR ---
PT ASSISTED BY EMS FROM [facility] TO ER BED 08
[2021-05-20 20:56] VITALS: BP 103/66
[2021-05-20] MEDS ORDERED: HYDROcodone/APAP 5/325 MG 1 TAB TAB PO ONE (21:10)
--- NOTE | 2021-05-20 21:19 | NUR ---
XRAY AT BEDSIDE.
[2021-05-20] MEDS ORDERED: ACET-8386 PO (21:57)
[2021-05-20 22:15] VITALS: BP 103/66
--- NOTE | 2021-05-20 22:15 | NUR ---
Patient discharged with v/s stable. Written and verbal after care instructions given and explained. Patient alert, oriented and verbalized understanding of instructions. Ambulatory with steady gait. All questions addressed prior to discharge. ID band removed. Patient advised to follow up with PMD. Rx of HYDROCODONE given. Patient educated on indication of medication including possible reaction and side effects. Opportunity to ask questions provided and answered.
--- NOTE | 2021-05-20 22:39 | NUR ---
The patient's care was reviewed and supervised by ROMEO FELIPE RN.
== END 2021-05-20 22:15 | disposition home or self-care (01) ==
LOC: MED 20:44
DX: M25.561 Pain in right knee (principal); Z79.899 Other long term (current) drug therapy; W19.XXXA Unspecified fall, initial encounter; Y93.89 Activity, other specified; Y92.89 Other specified places as the place of occurrence of the external cause; Y99.8 Other external cause status
CPT/HCPCS: 73562; 99283; Q0092

== ENCOUNTER 2021-05-26 17:19 | Emergency (ER) | payer MEDICAID ==
[~2021-05-26] VITALS: Ht 170.2 cm; Wt 74.8 kg
[~2021-05-26 17:19] MED LIST changes: +ACET-8386 PO
[2021-05-26 17:20] VITALS: BP 123/87
[2021-05-26] MEDS ORDERED: NACL 0.9% 1,000 ML IV ONE (17:40)
[2021-05-26] MEDS ORDERED: PANTOPRAZOLE 40 MG INJ VIAL IVP ONE (18:05)
--- NOTE | 2021-05-26 18:21 | NUR ---
BLOOD SAMPLE HANDED TO CPT SUSANA IN LAB.
--- NOTE | 2021-05-26 18:21 | NUR ---
ENDY bledsoe ultrasound guided IV.
--- NOTE | 2021-05-26 18:25 | NUR ---
51 y/o M BIBA from [place] front of [employer] c/o generalized weakness to LE and vomiting blood x 5-6 episodes today. Patient . Patient A&Ox4, ambulatory, states 3 beers "tall cans" today. Pt denies other drugs or alcohol. Denies diarrhea, chest pain, abdominal pain, headache, cold-like symptoms, cough. EMS AccuChek 133. Patient states seen at [facility] two days ago for bilateral leg pain. VSS; respirations even/unlabored. community organization director in place. Bed locked in lowest position, side rails x 1, call light in reach. PMH: pancreatitis, seizures "1 seizure before" NKA
--- NOTE | 2021-05-26 18:40 | NUR ---
unable to provide urine sample at this time. Urinal remains at bedside.
[2021-05-26] MEDS ORDERED: cefTRIAXone 1,000 MG VIAL ONE (18:41)
[2021-05-26 18:47] LABS: BASOPHILS % (AUTO) 0.6 % (0.0-2.0); EOSINOPHILS # (AUTO) 0.1 K/uL (0-0.4); EOSINOPHILS % (AUTO) 1.2 % (0.0-4.0); HEMATOCRIT 29.9 % (36-52); HEMOGLOBIN 10.3 g/dL (12.0-18.0); LYMPHOCYTES # (AUTO) 1.9 K/uL (2.0-11.5); LYMPHOCYTES % (AUTO) 34.9 % (20.5-51.1); MEAN CORPUSCULAR HEMOGLOBIN 32 pg (27-31); MEAN CORPUSCULAR HGB CONC 35 g/dL (33-37); MEAN CORPUSCULAR VOLUME 92.4 fL (80-94); MONOCYTES # (AUTO) 0.7 K/uL (0.8-1.0); MONOCYTES % (AUTO) 12.2 % (1.7-9.3); NEUTROPHILS # (AUTO) 2.7 K/uL (1.8-7.7); NEUTROPHILS % (AUTO) 51.1 % (42.2-75.2); PLATELET COUNT (AUTO) 139 K/uL (140-450); RED BLOOD CELL COUNT(AUTO) 3.24 MIL/uL (4.20-6.10); RED CELL DISTRIBUTION WIDTH 15.5 % (11.6-13.7); WHITE BLOOD COUNT (AUTO) 5.4 K/uL (4.8-10.8)
--- NOTE | 2021-05-26 18:55 | NUR ---
Dr Dwyer made aware of IV L upper arm infiltrated. ERMD states to withhold medication.
[2021-05-26 19:00] LABS: PROTHROMBIN TIME 15.2 secs (10.8-13.4)
[2021-05-26 19:02] LABS: ALBUMIN 2.7 g/dL (3.4-5.0); ANION GAP 12.1 (8-16); CREATININE 0.7 mg/dL (0.6-1.3); POTASSIUM 4.1 mmol/L (3.5-5.1); TOTAL BILIRUBIN 1.8 mg/dL (0.0-1.0)
--- NOTE | 2021-05-26 19:20 | NUR ---
Report and transfer of care endorsed to MARILYN Andrade
[2021-05-26] MEDS ORDERED: LIB25 PO (19:53)
[2021-05-26] MEDS ORDERED: PANT40EC PO (19:53)
[2021-05-26] MEDS ORDERED: chlordiazePOXIDE 25 MG CAP PO SCH (20:00)
--- NOTE | 2021-05-26 20:39 | NUR ---
PATIENT CLEARED FOR DISCHARGE AT THIS TIME. PATIENT HAS NO FURTHER QUESTIONS OR COMPLAINTS FOLLOWING DISCHARGE TEACHING. ADVISED TO FOLLOW UP WITH PCP, RX SENT HOME WITH TIGRE.
[2021-05-26 20:40] VITALS: BP 123/87
== END 2021-05-26 20:39 | disposition home or self-care (01) ==
LOC: MED 17:19
DX: F10.129 Alcohol abuse with intoxication, unspecified (principal); R11.10 Vomiting, unspecified; E87.1 Hypo-osmolality and hyponatremia; D64.9 Anemia, unspecified; R74.01 Elevation of levels of liver transaminase levels; R74.8 Abnormal levels of other serum enzymes
CPT/HCPCS: 36415; 80053; 83690; 85025; 85610; 85730; 86886; 86900; 86901; 99283; C9113; G0482; J0696

== ENCOUNTER 2021-07-14 22:17 | Inpatient (IN) | payer MEDICAID, SELFPAY ==
[~2021-07-14] VITALS: Ht 170.2 cm; Wt 79.4 kg
[2021-07-14 22:17] VITALS: BP 104/79
[~2021-07-14 22:17] MED LIST changes: +LIB25 PO; +PANT40EC PO
--- NOTE | 2021-07-14 22:20 | NUR ---
PT OFFLOADED TO THE LOBBY IN STABLE CONDITION TO A/W BED.
[2021-07-15] MEDS ORDERED: LIDOCAINE MPF 1% 5 ML ONE ×3 (00:08→00:10)
[2021-07-15 01:15] LABS: BASOPHILS % (AUTO) 0.2 % (0.0-2.0); EOSINOPHILS # (AUTO) 0.1 K/uL (0-0.4); EOSINOPHILS % (AUTO) 1.9 % (0.0-4.0); HEMOGLOBIN 8.3 g/dL (12.0-18.0); LYMPHOCYTES % (AUTO) 38.7 % (20.5-51.1); MEAN CORPUSCULAR HEMOGLOBIN 30 pg (27-31); MEAN CORPUSCULAR HGB CONC 33 g/dL (33-37); MONOCYTES # (AUTO) 0.5 K/uL (0.8-1.0); NEUTROPHILS # (AUTO) 1.1 K/uL (1.8-7.7); NEUTROPHILS % (AUTO) 42.2 % (42.2-75.2); PLATELET COUNT (AUTO) 60 K/uL (140-450); RED BLOOD CELL COUNT(AUTO) 2.81 MIL/uL (4.20-6.10); RED CELL DISTRIBUTION WIDTH 18.2 % (11.6-13.7); WHITE BLOOD COUNT (AUTO) 2.6 K/uL (4.8-10.8)
[2021-07-15 01:34] LABS: ALBUMIN 1.6 g/dL (3.4-5.0); ANION GAP 10.3 (8-16); CARBON DIOXIDE 27.1 mmol/L (21-32); CREATININE 0.6 mg/dL (0.6-1.3); POTASSIUM 3.4 mmol/L (3.5-5.1); TOTAL BILIRUBIN 0.5 mg/dL (0.0-1.0)
--- NOTE | 2021-07-15 03:05 | NUR ---
PT TAKEN TO ULTRASOUND
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
--- NOTE | 2021-07-15 05:40 | NUR ---
PT W/C ASSISTED TO BED #7
[2021-07-15] MEDS ORDERED: MORPHINE SULFATE 4 MG/ML SYR IVP PRN (07:10)
--- NOTE | 2021-07-15 07:33 | NUR ---
Received report from GUANAKO STEINBERG for continuity of care.
--- NOTE | 2021-07-15 07:38 | NUR ---
Pt report given to TENZIN. Transfer of care at this time.
[2021-07-15] MEDS ORDERED: cefTRIAXone 1,000 MG VIAL ONE (08:13)
--- NOTE | 2021-07-15 09:03 | NUR ---
Blood cultures and UA walked to lab, handed to CPT Shadia
--- NOTE | 2021-07-15 09:24 | NUR ---
Patient moved to er bed 10 via [facility] for Covid-19 isolation precautions,
--- NOTE | 2021-07-15 09:49 | NUR ---
REPORT RECEIVED FROM TENZIN MUJICA FOR CONTINUITY OF CARE.
--- NOTE | 2021-07-15 09:49 | NUR ---
REPORT GIVEN TO MARILYN MTZ FOR CONTINUITY OF CARE
[2021-07-15 09:53] LABS: APPEARANCE,URINE CLEAR (CLEAR); BILIRUBIN,URINE NEGATIVE (NEGATIVE); BLOOD, URINE NEGATIVE (NEGATIVE); COLOR,URINE YELLOW (YELLOW); LEUKOCYTE ESTERASE ,URINE NEGATIVE (NEGATIVE); NITRITE, URINE NEGATIVE (NEGATIVE); PH,URINE 6.5 (5.0-9.0); UGLUCOSE NEGATIVE (NEGATIVE)
[2021-07-15] MEDS ORDERED: ALBUTEROL HFA MDI 90 MCG/ACTUATION 8 GM INH PRN (10:10)
[2021-07-15] MEDS ORDERED: MORPHINE SULFATE 2 MG/ML SYR IVP PRN (10:10)
[2021-07-15] MEDS ORDERED: MAG SULF 2000 MG/WATER PREMIX 50 ML IV PRN (10:10)
[2021-07-15] MEDS ORDERED: ONDANSETRON 4 MG/2 ML VIAL IM/IVP PRN (10:10)
[2021-07-15] MEDS ORDERED: DOCUSATE SODIUM 100 MG GELCAP PO PRN (10:10)
[2021-07-15] MEDS ORDERED: POTASSIUM CHLORIDE 10 MEQ TABER PO PRN (10:10)
[2021-07-15 10:18] LABS: BARBITURATE, URINE NEGATIVE ng/ml (NEG <=200); BENZODIAZEPINE, URINE NEGATIVE ng/mL (NEG <=200); CANNABINOID, URINE NEGATIVE ng/mL (NEG <=50); COCAINE, URINE NEGATIVE ng/mL (NEG <=300); OPIATE, URINE NEGATIVE ng/mL (NEG <=2000); PHENCYCLIDINE SCREEN,URINE NEGATIVE ng/mL (NEG <=25)
--- NOTE | 2021-07-15 12:39 | NUR ---
DR CYR AT BEDSIDE EXAMINING PT
[2021-07-15] MEDS: NACL 0.9% 1,000 ML IV SCH ×2 (12:41→18:47)
[2021-07-15] MEDS: chlordiazePOXIDE 25 MG CAP PO SCH ×2 (12:42→16:22)
[2021-07-15] MEDS: LORazepam 1 MG TAB PO SCH ×2 (12:42→21:38)
[2021-07-15 13:02] LABS: CHOL/HDL RATIO 4.3 (1-4.5); THYROID STIMULATING HORMONE 2.76 uIU/mL (0.34-3.74)
[2021-07-15 13:10] LABS: PROTHROMBIN TIME 14.8 secs (10.8-13.4)
--- NOTE | 2021-07-15 13:39 | NUR ---
PATIENT HAS BEEN SCREENED AND CATEGORIZED MODERATE NUTRITION RISK. PATIENT WILL BE SEEN WITHIN 3-5 DAYS OF ADMISSION. 07/15/21 07/19/[address]
--- NOTE | 2021-07-15 14:00 | NUR ---
PT SOILED SELF. CLEANED PT.
--- NOTE | 2021-07-15 15:52 | NUR ---
Patient was requesting food. Made aware he is NPO.
--- NOTE | 2021-07-15 17:30 | NUR ---
Patient awake in bed. On room Air. Vital Signs within normal limits. Respirations even and unlabored. Chest rise is symmetrical. Will Continue to monitor.
--- NOTE | 2021-07-15 19:15 | NUR ---
RN TO PT ROOM. PT LYING IN BED APPEARS TO BE ASLEEP. EQUAL RISE AND FALL OF CHEST. NO ACUTE DISTRESS AT THIS TIME, WILL CONTINUE TO MONITOR PT.
--- NOTE | 2021-07-15 19:15 | NUR ---
RECIEVED REPORT FROM MARILYN MTZ TO ASSUME CARE OF PT.
--- NOTE | 2021-07-15 19:23 | NUR ---
Pt report given to MELONIE SANDERS. Transfer of care at this time.
[2021-07-15] MEDS: ZINC SULF 220 MG CAP PO SCH (21:00)
--- NOTE | 2021-07-15 21:30 | NUR ---
PT COMPLAINING OF PAIN. RN TO MEDICATE PT. PLEASE SEE EMAR.
[2021-07-16] MEDS: ZOLPIDEM 5 MG TAB PO PRN (00:06)
[2021-07-16] MEDS: LORazepam 2 MG/ML VIAL IM/IVP PRN (00:46)
[2021-07-16] MEDS: MORPHINE SULFATE 2 MG/ML SYR IVP PRN ×2 (00:47→10:29)
--- NOTE | 2021-07-16 01:00 | NUR ---
PATIENT IS ADMITTED FROM THE ED VIA WHEELCHAIR WITH CHIEF COMPLAINT OF ABD PAIN X5 DAYS. A&OX4. VITAL SIGNS TAKEN. PATIENT IS C/O PAIN 6/10 ON BLE. WILL ENDORSE TO RN FOR IV PRN PER MD ORDER. HEAD TO TOE ASSESSMENT COMPLETED WITH MARILYN BONILLA. PATIENT IS ON ROOM WITH NO APPARENT S/SX OF ACUTE DISTRESS. RESPIRATIONS EVEN AND UNLABORED. PATIENT IS ON DROPLET PRECAUTION DUE TO PRAVEENA POSITIVE RESULT. PATIENT HAS J&J VACCINE. PATIENT'S BLE IS NONPITTING EDEMA +2. PATIENT IS NPO AFTER MIDNIGHT. PATIENT IS AMBULATORY AND UTILIZES A WALKER. PATIENT HAS A BEDSIDE URINAL. SKIN IS INTACT. PATIENT'S IV SITE TO THE LEFT HAND 20G IS PATENT, INTACT, ASYMPTOMATIC WITH NS INFUSING AT 120 ML/HOUR. PATIENT IS ORIENTED TO CALL LIGHT, BED, PHONE, TELEVISION, BATHROOM, & VISITING HOURS. ID BRACELET IS ON. BELONGINGS LIST CHECKED.
--- NOTE | 2021-07-16 01:01 | NUR ---
Patient's Plan of Care was discussed and reviewed with GUANAKO: YENIFER
[2021-07-16] MEDS: NACL 0.9% 1,000 ML IV SCH ×3 (02:50→19:30)
--- NOTE | 2021-07-16 03:00 | NUR ---
CHECKED PATIENT. STABLE AND AWAKE WHILE WATCHING TV. PATIENT IS CAUGHT SNACKING AND SUPPOSED TO BE NPO. EDUCATED PATIENT ABOUT MD ORDER. VERBALIZED UNDERSTANDING. PATIENT DENIES PAIN. RESPIRATIONS EVEN AND UNLABORED WITH NO APPARENT S/SX ACUTE DISTRESS. WHITE COMMUNICATION BOARD UPDATED. ALL SAFETY MEASURES IN PLACE. CALL LIGHT WITHIN REACH. WILL CONTINUE TO MONITOR.
[2021-07-16 04:00] VITALS: BP 135/75
[2021-07-16] MEDS: LORazepam 1 MG TAB PO SCH ×3 (05:00→21:55)
--- NOTE | 2021-07-16 05:00 | NUR ---
ROUNDED ON PATIENT. STABLE AND AWAKE. DENIES PAIN. RESPIRATIONS EVEN AND UNLABORED WITH NO APPARENT S/SX OF ACUTE DISTRESS. PATIENT DENIES SNACKING WHILE NPO AT THIS TIME. LAST KNOWN TIME WAS 0300. WILL ENDORSE TO MORNING SHIFT NURSE. WHITE COMMUNICATION BOARD UPDATED. ALL SAFETY MEASURES IN PLACE. CALL LIGHT WITHIN REACH. WILL CONTINUE TO MONITOR.
--- NOTE | 2021-07-16 07:10 | NUR ---
ENDORSED PATIENT TO MORNING SHIFT NURSE FOR CONTINUITY OF CARE. PATIENT IS STABLE.
--- NOTE | 2021-07-16 07:15 | NUR ---
RECEIVED REPORT FROM SKIN GRADER NURSE. PATIENT IS AWAKE AND LAYING IN BED. NO S/S OF DISTRESS. RESPIRATIONS EVEN AND UNLABORED. ALL SAFETY PRECAUTIONS IN PLACE.
[2021-07-16 07:24] LABS: BASOPHILS % (AUTO) 0.7 % (0.0-2.0); EOSINOPHILS % (AUTO) 0.1 % (0.0-4.0); HEMATOCRIT 23.4 % (36-52); HEMOGLOBIN 7.9 g/dL (12.0-18.0); LYMPHOCYTES # (AUTO) 3.1 K/uL (2.0-11.5); LYMPHOCYTES % (AUTO) 52.1 % (20.5-51.1); MEAN CORPUSCULAR HEMOGLOBIN 30 pg (27-31); MEAN CORPUSCULAR HGB CONC 34 g/dL (33-37); MEAN CORPUSCULAR VOLUME 88.8 fL (80-94); MONOCYTES # (AUTO) 0.7 K/uL (0.8-1.0); NEUTROPHILS # (AUTO) 2.1 K/uL (1.8-7.7); NEUTROPHILS % (AUTO) 35.1 % (42.2-75.2); PLATELET COUNT (AUTO) 60 K/uL (140-450); RED BLOOD CELL COUNT(AUTO) 2.64 MIL/uL (4.20-6.10); RED CELL DISTRIBUTION WIDTH 18.3 % (11.6-13.7); WHITE BLOOD COUNT (AUTO) 5.9 K/uL (4.8-10.8)
[2021-07-16 07:56] LABS: ALBUMIN 1.5 g/dL (3.4-5.0); ANION GAP 12.6 (8-16); CREATININE 0.7 mg/dL (0.6-1.3); MAGNESIUM 1.4 mg/dL (1.8-2.4); PHOSPHORUS 2.9 mg/dL (2.5-4.9); POTASSIUM 3.6 mmol/L (3.5-5.1); TOTAL BILIRUBIN 0.5 mg/dL (0.0-1.0)
[2021-07-16 08:00] VITALS: BP 131/75
[2021-07-16] MEDS ORDERED: AZITHROMYCIN 250 MG TAB PO SCH (09:00)
[2021-07-16] MEDS: chlordiazePOXIDE 25 MG CAP PO SCH ×3 (10:26→17:00)
[2021-07-16] MEDS: MULTIVITAMIN 1 TAB PO SCH (10:26)
[2021-07-16] MEDS: VITAMIN D 400 IU TAB PO SCH (10:26)
[2021-07-16] MEDS: ZINC SULF 220 MG CAP PO SCH ×2 (10:26→21:55)
[2021-07-16] MEDS: FOLIC ACID 1 MG TAB PO SCH (10:27)
[2021-07-16] MEDS: THIAMINE 100 MG TAB PO SCH (10:27)
[2021-07-16] MEDS: ASCORBIC ACID 500 MG TAB PO SCH (10:28)
--- NOTE | 2021-07-16 10:30 | NUR ---
ADMINISTERED SCHEDULED MEDICATIONS. PATIENT VERBALIZED UNDERSTANDING. ALL SAFETY PRECAUTIONS IN PLACE.
--- NOTE | 2021-07-16 12:08 | NUR ---
DR AVILA AWARE OF THE CONSULT
--- NOTE | 2021-07-16 13:30 | NUR ---
PATIENT RESTING IN BED. NO S/S OF DISTRESS. ALL SAFETY PRECAUTIONS IN PLACE.
[2021-07-16 16:00] VITALS: BP 115/70
--- NOTE | 2021-07-16 17:00 | NUR ---
HIDA SCAN TECH AT BEDSIDE FOR PROCEDURE.
--- NOTE | 2021-07-16 18:00 | NUR ---
HIDA SCAN UNABLE TO BE COMPLETED. PATIENT'S IV WAS DISLODGED AND AFTER MULTIPLE ATTEMPTS TO PLACE NEW IV, WE WERE UNABLE TO. PICC LINE PLACEMENT NEEDED PER DR FERNANDEZ. HIDA SCAN WILL BE RESCHEDULED.
--- NOTE | 2021-07-16 20:01 | NUR ---
ENDORSED PATIENT TO INSIDE SALES ASSOCIATE RN FOR CONTINUITY OF CARE. PATIENT STABLE.
--- NOTE | 2021-07-16 20:02 | NUR ---
RECEIVED REPORT FROM AM NURSE. PATIENT IS AWAKE RESTING WITH HEAD OF BED ELEVATED. NO S/S OF RESPIRATORY DISTRESS. RESPIRATION EVEN UNLABORED. SAFETY MEASURES IN PLACE. CALL LIGHT WITHIN REACH. NO COMPLAINTS OF PAIN AT THIS TIME. WILL CONTINUE TO MONITOR.
--- NOTE | 2021-07-16 21:00 | NUR ---
HEPARIN NOT GIVEN PLATELET IS 60.
--- NOTE | 2021-07-16 21:55 | NUR ---
ADMINISTERED MEDS ORDERED BY .
[2021-07-17] MEDS: PIPERACILLIN/TAZOBACTAM 3.375 GM in DEXTROSE 5% 50 ML IV SCH ×2
[2021-07-17] MEDS: HYDROcodone/APAP 5/325 MG 1 TAB TAB PO PRN (00:53)
[2021-07-17] MEDS: LORazepam 2 MG/ML VIAL IM/IVP PRN (00:54)
[2021-07-17 04:00] VITALS: BP 108/75
[2021-07-17] MEDS: LORazepam 1 MG TAB PO SCH ×3 (06:30→22:00)
--- NOTE | 2021-07-17 07:30 | NUR ---
ENDORSED PT TO DAY SHIFT RN FOR CONTINUITY OF CARE. PT IS STABLE
--- NOTE | 2021-07-17 07:31 | NUR ---
RECEIVED ENDORSEMENT FROM CABANA ATTENDANT NURSE FOR CONTINUITY OF CARE. PT WAITING FOR PICC LINE INSERTION. CONSENT SIGNED. PT ASLEEP.
[2021-07-17] MEDS: ZINC SULF 220 MG CAP PO SCH ×2 (09:30→22:00)
[2021-07-17] MEDS: THIAMINE 100 MG TAB PO SCH (09:30)
[2021-07-17] MEDS: MULTIVITAMIN 1 TAB PO SCH (09:30)
[2021-07-17] MEDS: chlordiazePOXIDE 25 MG CAP PO SCH ×3 (09:30→17:45)
[2021-07-17] MEDS: FOLIC ACID 1 MG TAB PO SCH (09:31)
[2021-07-17] MEDS: VITAMIN D 400 IU TAB PO SCH (09:31)
[2021-07-17] MEDS: ASCORBIC ACID 500 MG TAB PO SCH (09:31)
--- NOTE | 2021-07-17 10:35 | NUR ---
LEFT MESSAGE TO DR. FERNANDEZ FOR PICC LINE CONSENT NEED TO BE SIGN.
--- NOTE | 2021-07-17 10:36 | NUR ---
LEFT MESSAGE TO PICC LINE NURSE FOR PICC LINE INSERTION.
[2021-07-17] MEDS: NACL 0.9% 1,000 ML IV SCH ×2 (12:10→20:30)
--- NOTE | 2021-07-17 12:30 | NUR ---
PT ON EDGE OF BED SITTING NO DISTRESS NOTED. CALL LIGHT WITH IN EASY REACH. DROPLET PRECAUTION OBSERVE. ALL SAFETY MEASURE IN PLACE. ENCOURAGED TO CALL FOR ASSISTANCE AND USE OF CALL LIGHT. PT NOTED WALKING TO TOILET WITH OUT CALLING FOR ASSISTANCE.
--- NOTE | 2021-07-17 15:20 | NUR ---
PT ON BED RESTING CALL LIGHT WITH IN EASY REACH ALL SAFETY MEASURE IN PLACE.
[2021-07-17 16:00] VITALS: BP 103/73
[2021-07-17 16:07] LABS: BASOPHILS % (AUTO) 0.2 % (0.0-2.0); HEMATOCRIT 26.5 % (36-52); HEMOGLOBIN 8.7 g/dL (12.0-18.0); LYMPHOCYTES # (AUTO) 0.9 K/uL (2.0-11.5); LYMPHOCYTES % (AUTO) 19.3 % (20.5-51.1); MEAN CORPUSCULAR HEMOGLOBIN 29 pg (27-31); MEAN CORPUSCULAR HGB CONC 33 g/dL (33-37); MEAN CORPUSCULAR VOLUME 89.4 fL (80-94); MONOCYTES # (AUTO) 0.5 K/uL (0.8-1.0); MONOCYTES % (AUTO) 10.1 % (1.7-9.3); NEUTROPHILS # (AUTO) 3.2 K/uL (1.8-7.7); NEUTROPHILS % (AUTO) 70.4 % (42.2-75.2); PLATELET COUNT (AUTO) 75 K/uL (140-450); RED BLOOD CELL COUNT(AUTO) 2.96 MIL/uL (4.20-6.10); RED CELL DISTRIBUTION WIDTH 17.7 % (11.6-13.7); WHITE BLOOD COUNT (AUTO) 4.6 K/uL (4.8-10.8)
[2021-07-17 16:34] LABS: ALBUMIN 1.7 g/dL (3.4-5.0); ANION GAP 13.6 (8-16); CARBON DIOXIDE 24.4 mmol/L (21-32); CREATININE 0.7 mg/dL (0.6-1.3); MAGNESIUM 1.5 mg/dL (1.8-2.4); PHOSPHORUS 2.4 mg/dL (2.5-4.9); TOTAL BILIRUBIN 0.7 mg/dL (0.0-1.0)
--- NOTE | 2021-07-17 17:31 | NUR ---
RECEIVED CRITICAL LABS FOR LACTIC ACID OF 2.[address] FERNANDEZ[address] WAITING FOR RESPONSE.
--- NOTE | 2021-07-17 19:30 | NUR ---
ENDORSE TO BYPRODUCTS MAKER FOR CONTINUITY OF CARE. PT. ON BED RESTING.
--- NOTE | 2021-07-17 19:31 | NUR ---
RECD. RESTING IN BED, AWAKE, A/OX3. RESPIRATION EVEN AND UNLABORED. ON ROOM AIR, 02 SAT - 98%. ABLE TO AMBULATE TO THE BR USING HIS WALKER. NO IV LINE WAITING FOR PICC LINE NURSE. REFUSED TO WEAR HOSPITAL GOWN. NPO EXCEPT MEDICATIONS. DENIES PAIN 0/10.
--- NOTE | 2021-07-17 20:00 | NUR ---
METAL POLISHER JUAN FOLLOW UP WITH PICC LINE NURSE VIKTORIYA. NO RESPONSE, WILL FOLLOW UP AGAIN.
--- NOTE | 2021-07-17 20:30 | NUR ---
REVIEWED PLAN OF CARE WITH BRENDA RICHEY LVN AND WILL CONTINUE WITH PLAN OF CARE.
--- NOTE | 2021-07-17 21:30 | NUR ---
CHECKED PATIENT, SITTING ON THE TOILET BOWL. PATIENT VOIDED ACCIDENTALLY ON THE FLOOR BESIDE BED AND WITH DROPS OF URINE ON THE WAY TO THE BR. INFORMED MT TO REQUEST IF ANY AVAILABLE FOR PANTS FROM [employer].
--- NOTE | 2021-07-17 22:00 | NUR ---
SITTING ON THE BED, ASSISTED TO SIT ON THE CHAIR, HOUSEKEEPING CLEANS THE FLOOR. ADMINISTERED MEDICATIONS FOR THE NIGHT.
--- NOTE | 2021-07-18 | NUR ---
ASSISTED WITH HELP OF BICYCLE RENTAL CLERK TO PUT ON UNDERWEAR, REFUSED TO WEAK THE PANTS FROM [employer], WANTS TOMORROW. ALWAYS TRYING TO GET OUT OF BED. INSTRUCTED TO USE THE URINAL.
--- NOTE | 2021-07-18 01:00 | NUR ---
TRYING TO GET OUT OF BED, INSTRUCTED JUST TO STAY IN BED SO THAT THE BED ALARM WILL NOT SOUND.
--- NOTE | 2021-07-18 03:20 | NUR ---
CHEST X-RAY SHOWS RIGHT UPPER ARM PICC LINE TIP OVERLYING THE CAVOATRIAL JUNCTION.
[2021-07-18 04:00] VITALS: BP 113/85
--- NOTE | 2021-07-18 04:00 | NUR ---
BED ALARMED, GETS OUT OF BED TO VOID, UNCOOPERATIVE DOES NOT OBEY NURSE TO USE THE URINAL, PATIENT GAIT IS VERY UNSTEADY. BED IS WET. CHANGED BEDDINGS. INSTRUCTED PT JUST TO USE THE URINAL. NEEDS REINFORCEMENTS. PUT BED ON ALARM.
[2021-07-18] MEDS: NACL 0.9% 1,000 ML IV SCH ×3 (04:50→21:30)
[2021-07-18] MEDS: PIPERACILLIN/TAZOBACTAM 3.375 GM in DEXTROSE 5% 50 ML IV SCH ×3 (06:14→18:39)
--- NOTE | 2021-07-18 06:14 | NUR ---
ZOSYN IVPB INFUSED BY NURSE ART LIBRARIAN JUAN, TOLERATED WELL.
[2021-07-18] MEDS: LORazepam 1 MG TAB PO SCH ×3 (06:35→21:35)
--- NOTE | 2021-07-18 07:20 | NUR ---
CONDITION REMAIN STABLE. ENDORSED TO AM NURSE FOR CONTINUITY OF CARE.
--- NOTE | 2021-07-18 07:21 | NUR ---
RECEIVED REPORT FROM EXPLORATION DRILLER NURSE FOR CONTINUITY OF CARE. PT IS IN BED AT THIS TIME, ATTEMPTING TO GET OUT OF BED. EDUCATED PT ON DANGERS OF AMBULATING WITHOUT ASSISTANCE. PT ALSO URINATED ON FLOOR. CLEANED UP PT. PT STATED HE DID NOT WANT TO USE URINAL, STATED "OK". EDUCATED PT USE OF URINAL.PT IS ALERT AND ORIENTED X3, HOWEVER IS NON-COMPLIANT. PT IS ON ROOM AIR, WITH 02 SAT AT 98%. RESPIRATIONS ARE EVEN AND UNLABORED WITH NO SIGNS OF DISTRESS NOTED. AT THIS TIME PT IS NPO EXCEPT MEDS DUE TO SCHEDULED SCAN PROCEDURE. ABD IS NONTENDER, NONDISTENDED. WITH BOWEL SOUNDS PRESENT. PT IS INCONTINENT OF BOWEL AND BLADDER. PT HAS PICC LINE TO L UPPER ARM. WITH FLUIDS RUNNING. WILL CONTINUE TO MONITOR . CALL LIGHT WITHIN REACH. ALL SAFETY MEASURES IN PLACE.
[2021-07-18 08:00] VITALS: BP 114/74
[2021-07-18] MEDS: chlordiazePOXIDE 25 MG CAP PO SCH ×3 (08:41→17:00)
[2021-07-18] MEDS: MULTIVITAMIN 1 TAB PO SCH (08:41)
[2021-07-18] MEDS: THIAMINE 100 MG TAB PO SCH (08:41)
--- NOTE | 2021-07-18 08:41 | NUR ---
ADMINISTERED ALL SCHEDULED MEDICATIONS. HELD MEDICATION HEPARIN DUE TO PLATELET COUNT AT 75. EDUCATED PT ON MEDS ADMINISTERED. PT STATED "OK". ALL SAFETY MEASURES IN PLACE. WILL CONTINUE TO MONITOR.
[2021-07-18] MEDS: ZINC SULF 220 MG CAP PO SCH ×2 (08:42→21:35)
[2021-07-18] MEDS: FOLIC ACID 1 MG TAB PO SCH (08:42)
[2021-07-18] MEDS: VITAMIN D 400 IU TAB PO SCH (08:43)
[2021-07-18] MEDS: ASCORBIC ACID 500 MG TAB PO SCH (08:43)
[2021-07-18] MEDS: HYDROcodone/APAP 5/325 MG 1 TAB TAB PO PRN (08:48)
--- NOTE | 2021-07-18 10:52 | NUR ---
BED ALARM GOING OFF. PT ATTEMPTING TO GET UP AND WALK. EDUCATED PT ON DANGERS OF AMBULATING WITHOUT ASSISTANCE. PT THEN STATED HE NEEDED TO BE CLEANED UP, BECAUSE HE URINATED ON THE FLOOR. STATED HE DID NOT WANT TO USE URINAL. CLEANED UP PT. ALL SAFETY MEASURES IN PLACE. WILL CONTINUE TO MONITOR.
--- NOTE | 2021-07-18 13:20 | NUR ---
PT ATTEMPTING TO GET OUT OF BED ONCE AGAIN. REORIENTED PT BACK TO BED. PT THEN STOOD UP ONCE AGAIN AND URINATED ON FLOOR. PT STATED "IM USED TO PEEING ON THE FLOOR". EDUCATED PT ON USE OF URINAL, PT STATED HE DID NOT WANT TO USE IT. CHANGED BEDDING AND CLEANED UP PT ONCE AGAIN. ALL SAFETY MEASURES IN PLACE. WILL CONTINUE TO MONITOR.
--- NOTE | 2021-07-18 14:25 | NUR ---
RECEIVED A CALL FROM NUCLEAR MED, INFORMED THAT HYDA SCAN TECH WILL BE DISPATCHED TO THIS HOSPITAL AROUND 1530 TO PERFORM HYDA SCAN ON PT. PT INFORMED. WILL CONTINUE TO MONITOR.
--- NOTE | 2021-07-18 16:40 | NUR ---
HYDA SCAN IN PROGRESS. RESPIRATIONS ARE EVEN AND UNLABORED. NO SIGNS OF DISTRESS NOTED. WILL CONTINUE TO MONITOR.
--- NOTE | 2021-07-18 19:16 | NUR ---
PT IS IN BED RESTING AT THIS TIME. RESPIRATIONS ARE EVEN AND UNLABORED. NO SIGNS OF DISTRESS NOTED. PER DR, PT WILL STAY NPO UNTIL RESULTS OF HYDA SCAN. ENDORSED PT TO NURSE COLLEGE NURSE FOR CONTINUITY OF CARE. PT IS STABLE.
--- NOTE | 2021-07-18 19:17 | NUR ---
RECD. RESTING IN BED, AWAKE, A/OX3. RESPIRATION EVEN AND UNLABORED. IV OF NS AT 120 ML/HR, RIGHT UPPER ARM PICC LINE. USES A WALKER, ABLE TO AMBULATE WITH ASSISTANCE. INSTRUCTED TO CALL NURSE BEFORE GETTING OUT OF BED TO PREVENT HIMSELF FROM FALLING, CALL LIGHT PLACED NEAR PATIENT. PUT BED ON ALARM. DENIES PAIN 0/10.
[2021-07-18 20:00] VITALS: BP 108/73
--- NOTE | 2021-07-18 21:35 | NUR ---
SCHEDULED MEDICATIONS FOR THE NIGHT ADMINISTERED. TOLERATED WELL.
--- NOTE | 2021-07-19 | NUR ---
SLEEPING COMFORTABLY IN BED, RESPIRATION EVEN AND UNLABORED. CALL LIGHT IN REACH.
--- NOTE | 2021-07-19 02:00 | NUR ---
STILL SLEEPING COMFORTABLY IN BED. FEELING COLD, WARM, BLANKET GIVEN.
--- NOTE | 2021-07-19 03:33 | NUR ---
Patient's Plan of Care was discussed and reviewed with PRESS WRITER: BRENDA MUJICA/IRIS. JADEN SANDERS.
[2021-07-19 04:00] VITALS: BP 118/74
[2021-07-19] MEDS: LORazepam 1 MG TAB PO SCH ×3 (05:45→21:12)
--- NOTE | 2021-07-19 05:45 | NUR ---
WAKEN UP FROM SLEEP. SCHEDULED MEDICATION FOR THE MORNING ADMINISTERED.
[2021-07-19] MEDS: NACL 0.9% 1,000 ML IV SCH ×3 (05:50→22:30)
[2021-07-19] MEDS: PIPERACILLIN/TAZOBACTAM 3.375 GM in DEXTROSE 5% 50 ML IV SCH ×6 (06:00→23:37)
[2021-07-19 07:40] LABS: BASOPHILS % (AUTO) 0.6 % (0.0-2.0); EOSINOPHILS % (AUTO) 0.4 % (0.0-4.0); HEMATOCRIT 22.4 % (36-52); HEMOGLOBIN 7.6 g/dL (12.0-18.0); LYMPHOCYTES # (AUTO) 1.2 K/uL (2.0-11.5); LYMPHOCYTES % (AUTO) 33.3 % (20.5-51.1); MEAN CORPUSCULAR HEMOGLOBIN 30 pg (27-31); MEAN CORPUSCULAR HGB CONC 34 g/dL (33-37); MEAN CORPUSCULAR VOLUME 87.3 fL (80-94); MONOCYTES # (AUTO) 0.5 K/uL (0.8-1.0); MONOCYTES % (AUTO) 13.2 % (1.7-9.3); NEUTROPHILS % (AUTO) 52.5 % (42.2-75.2); PLATELET COUNT (AUTO) 56 K/uL (140-450); RED BLOOD CELL COUNT(AUTO) 2.57 MIL/uL (4.20-6.10); RED CELL DISTRIBUTION WIDTH 17.7 % (11.6-13.7); WHITE BLOOD COUNT (AUTO) 3.7 K/uL (4.8-10.8)
--- NOTE | 2021-07-19 07:44 | NUR ---
CONDITION REMAIN STABLE. ENDORSED TO AM SHIFT NURSE FOR CONTINUITY OF CARE.
--- NOTE | 2021-07-19 07:45 | NUR ---
REPORT RECEIVED FROM PM SHIFT DOCUMENT CONTROL CLERK FOR CONTINUITY OF CARE.PT. STABLE. BREATHINGS EVEN AND UNLABORED. ALL SAFETY MEASURES IN PLACED. WILL CONTINUE TO MONITOR THE PT.
[2021-07-19 07:55] LABS: ALBUMIN 1.3 g/dL (3.4-5.0); ANION GAP 9.8 (8-16); CARBON DIOXIDE 22.9 mmol/L (21-32); CREATININE 0.6 mg/dL (0.6-1.3); MAGNESIUM 1.1 mg/dL (1.8-2.4); PHOSPHORUS 2.8 mg/dL (2.5-4.9); TOTAL BILIRUBIN 0.8 mg/dL (0.0-1.0)
[2021-07-19 08:00] VITALS: BP 120/83
--- NOTE | 2021-07-19 08:36 | NUR ---
CRITICAL LAB VALUE RECEIVED , POTASSIUM LEVEL 2.7, CALCIUM 6.2 AND BUN WAS6. NOTIFIED MD DR. DOUGHERTY. WITH RECEIVED ORDER . KCL 20MEQ IVPB X1 WILL CARRYOUT ORDER.
[2021-07-19 08:37] LABS: POTASSIUM 2.7 mmol/L (3.5-5.1)
[2021-07-19 09:22] LABS: T4 (THYROXINE) 3.9 ug/dL (4.5 - 12.0)
[2021-07-19] MEDS: chlordiazePOXIDE 25 MG CAP PO SCH ×3 (09:36→17:31)
[2021-07-19] MEDS: FOLIC ACID 1 MG TAB PO SCH (09:36)
[2021-07-19] MEDS: ZINC SULF 220 MG CAP PO SCH ×2 (09:36→21:12)
[2021-07-19] MEDS: MULTIVITAMIN 1 TAB PO SCH (09:36)
[2021-07-19] MEDS: THIAMINE 100 MG TAB PO SCH (09:36)
[2021-07-19] MEDS: VITAMIN D 400 IU TAB PO SCH (09:37)
[2021-07-19] MEDS: ASCORBIC ACID 500 MG TAB PO SCH (09:37)
--- NOTE | 2021-07-19 10:00 | NUR ---
PT. ALERT,STABLE, SITTING IN THE BED. NOT IN DISTRESS. ALL SAFETTY MEASURES IN PLACED. WILL CONTINUE TO MONITOR THE PT.
--- NOTE | 2021-07-19 10:30 | NUR ---
HEPARIN WAS HOLD DUE TO LOW PLATLET COUNT (56K)
[2021-07-19] MEDS ORDERED: POTA10TA70 PO (10:46)
[2021-07-19] MEDS ORDERED: MAGN241.1 PO (10:46)
[2021-07-19] MEDS ORDERED: ASPI-1205 PO (10:46)
[2021-07-19] MEDS ORDERED: POTASSIUM CHLORIDE 10 MEQ TABER PO SCH (11:00)
[2021-07-19] MEDS ORDERED: KCL 20 MEQ/WATER INJ PREMIX 200 ML IV SCH (11:15)
[2021-07-19 15:58] VITALS: BP 120/84
--- NOTE | 2021-07-19 16:34 | NUR ---
DISCHARGE ORDER RECEIVED FROM MD. WILL RECHECK BMP , IF POTASSIUM LEVEL > 3.2. PT. CAN BE DISCHARGE PER MD. CALL AND SPOKE WITH SISTER KANDY. RE. PT. BEING DISCHARGE. SHE SAID PT. IS NOT READY FOR DISCHARGE YET. SHE TALKED TO [facility]. IN THE MORNING TO [facility]IND [facility]WANT TO TRANSFER [facility]. WILL FOLLW UP WITH AND CM.
--- NOTE | 2021-07-19 17:50 | NUR ---
07/19/2021 RD INITIAL ASSESSMENT COMPLETED PLEASE REFER TO NUTRITION ASSESSMENT UNDER CARE ACTIVITY FOR ESTIMATED NUTRITIONAL NEEDS. ADVANCE DIET TO REGULAR SOON MEDICALLY APPROPRIATE INITIATE TPN IF UNABLE TO FEED PATIENT BY MOUTH RD TO FOLLOW-UP IN 2-3 DAYS PATIENT IS HIGH RISK. TAJ CAIN, RD
[2021-07-19 17:51] LABS: ANION GAP 10.8 (8-16); CREATININE 0.6 mg/dL (0.6-1.3); POTASSIUM 3.8 mmol/L (3.5-5.1)
--- NOTE | 2021-07-19 19:25 | NUR ---
RECEIVED ENDORSEMENT FROM MORNING SHIFT NURSE FOR CONTINUITY OF CARE. PATIENT IS STABLE IN BED. A&OX4. VERBALLY RESPONSIVE AND ABLE TO COMMUNICATE NEEDS. PATIENT IS ON DROPLET PRECAUTION. NECESSARY PROTOCOL IS OBSERVED. DENIES PAIN AT THIS TIME. RESPIRATIONS EVEN AND UNLABORED. ON ROOM AIR WITH NO APPARENT S/SX OF ACUTE DISTRESS. PATIENT HAS LUIS MANUEL PICCLINE WITH NS RUNNING AT 120 ML/HOUR. SKIN IS INTACT. PATIENT IS CONTINENT AND UTILIZES BEDSIDE URINAL TO VOID. PLAN OF CARE AND WHITE COMMUNICATION BOARD UPDATED. BED IN LOW/LOCKED POSITION. CALL LIGHT WITHIN REACH. WILL CONTINUE TO MONITOR. Addendum: 07/19/21 at 2215 by Carmelo James LVN TIME: 2007
[2021-07-19 20:00] VITALS: BP 145/69
--- NOTE | 2021-07-19 20:07 | NUR ---
REPORT GIVEN TO CLARKE GARCIA RN. PTMartin GARRIDO.
[2021-07-19] MEDS: ZOLPIDEM 5 MG TAB PO PRN (21:12)
--- NOTE | 2021-07-19 21:15 | NUR ---
ADMINISTERED SCHEDULED MEDICATION PER MD ORDER. TOLERATED WELL. NO ADVERSE REACTION NOTED. DENIES PAIN. RESPIRATIONS EVEN AND UNLABORED WITH NO APPARENT S/SX ACUTE DISTRESS. WHITE COMMUNICATION BOARD UPDATED. ALL SAFETY MEASURES IN PLACE. CALL LIGHT WITHIN REACH. WILL CONTINUE TO MONITOR.
--- NOTE | 2021-07-19 21:40 | NUR ---
Patient's Plan of Care was discussed and reviewed with ELECTRO MECHANICAL SOLAR TECHNICIAN: YENIFER MONIQUE
--- NOTE | 2021-07-19 23:15 | NUR ---
CHECKED PATIENT. STABLE AND AWAKE. DENIES PAIN. RESPIRATIONS EVEN AND UNLABORED WITH NO APPARENT S/SX ACUTE DISTRESS. WHITE COMMUNICATION BOARD UPDATED. ALL SAFETY MEASURES IN PLACE. CALL LIGHT WITHIN REACH. WILL CONTINUE TO MONITOR.
--- NOTE | 2021-07-20 01:15 | NUR ---
ROUNDED ON PATIENT. STABLE AND ASLEEP. CHEST IS RISING AND FALLING. RESPIRATIONS EVEN AND UNLABORED WITH NO APPARENT S/SX ACUTE DISTRESS. WHITE COMMUNICATION BOARD UPDATED. ALL SAFETY MEASURES IN PLACE. CALL LIGHT WITHIN REACH. WILL CONTINUE TO MONITOR.
--- NOTE | 2021-07-20 03:15 | NUR ---
CHECKED PATIENT. STABLE AND ASLEEP. CHEST IS RISING AND FALLING. RESPIRATIONS EVEN AND UNLABORED WITH NO APPARENT S/SX ACUTE DISTRESS. WHITE COMMUNICATION BOARD UPDATED. ALL SAFETY MEASURES IN PLACE. CALL LIGHT WITHIN REACH. WILL CONTINUE TO MONITOR.
[2021-07-20 04:00] VITALS: BP 138/71
[2021-07-20] MEDS: LORazepam 1 MG TAB PO SCH ×3 (05:19→20:28)
[2021-07-20] MEDS: PIPERACILLIN/TAZOBACTAM 3.375 GM in DEXTROSE 5% 50 ML IV SCH ×4 (05:52→23:39)
[2021-07-20] MEDS: NACL 0.9% 1,000 ML IV SCH ×3 (06:50→23:30)
--- NOTE | 2021-07-20 07:05 | NUR ---
ENDORSED PATIENT TO MORNING SHIFT NURSE FOR CONTINUITY OF CARE. PATIENT IS STABLE.
--- NOTE | 2021-07-20 07:15 | NUR ---
RECEIVED BEDSIDE REPORT FROM ASSEMBLED WOOD PRODUCTS REPAIRER NURSE FOR CONTINUITY OF CARE. PT IS AWAKE AND ALERT. A&OX4. ON RA WITH BREATHING UNLABORED. AMBULATORY WITH WALKER AT BEDSIDE. SKIN IS WARM, DRY, AND INTACT. PICC LINE IN THE UPPER ARM RUNNING FLUIDS ORDERED. PT IS STABLE. PLAN OF CARE DISCUSSED.
[2021-07-20 07:34] LABS: BASOPHILS % (AUTO) 0.6 % (0.0-2.0); EOSINOPHILS % (AUTO) 0.1 % (0.0-4.0); HEMATOCRIT 22.4 % (36-52); HEMOGLOBIN 7.7 g/dL (12.0-18.0); LYMPHOCYTES # (AUTO) 1.4 K/uL (2.0-11.5); LYMPHOCYTES % (AUTO) 33.4 % (20.5-51.1); MEAN CORPUSCULAR HEMOGLOBIN 30 pg (27-31); MEAN CORPUSCULAR HGB CONC 35 g/dL (33-37); MEAN CORPUSCULAR VOLUME 86.4 fL (80-94); MONOCYTES # (AUTO) 0.7 K/uL (0.8-1.0); MONOCYTES % (AUTO) 16.6 % (1.7-9.3); NEUTROPHILS # (AUTO) 2.1 K/uL (1.8-7.7); NEUTROPHILS % (AUTO) 49.3 % (42.2-75.2); PLATELET COUNT (AUTO) 59 K/uL (140-450); RED BLOOD CELL COUNT(AUTO) 2.59 MIL/uL (4.20-6.10); RED CELL DISTRIBUTION WIDTH 17.8 % (11.6-13.7); WHITE BLOOD COUNT (AUTO) 4.2 K/uL (4.8-10.8)
[2021-07-20 07:38] LABS: ALBUMIN 1.4 g/dL (3.4-5.0); ANION GAP 13.1 (8-16); CARBON DIOXIDE 21.1 mmol/L (21-32); CREATININE 0.5 mg/dL (0.6-1.3); MAGNESIUM 1.2 mg/dL (1.8-2.4); PHOSPHORUS 2.5 mg/dL (2.5-4.9); POTASSIUM 3.2 mmol/L (3.5-5.1); TOTAL BILIRUBIN 0.9 mg/dL (0.0-1.0)
[2021-07-20 08:00] VITALS: BP 122/86
[2021-07-20] MEDS: THIAMINE 100 MG TAB PO SCH (09:01)
[2021-07-20] MEDS: FOLIC ACID 1 MG TAB PO SCH (09:03)
[2021-07-20] MEDS: chlordiazePOXIDE 25 MG CAP PO SCH ×3 (09:03→17:47)
[2021-07-20] MEDS: ZINC SULF 220 MG CAP PO SCH ×2 (09:03→20:29)
[2021-07-20] MEDS: ASCORBIC ACID 500 MG TAB PO SCH (09:03)
[2021-07-20] MEDS: VITAMIN D 400 IU TAB PO SCH (09:03)
[2021-07-20] MEDS: MULTIVITAMIN 1 TAB PO SCH (09:03)
--- NOTE | 2021-07-20 09:24 | NUR ---
MAG RIDER GIVEN FOR MAGNESIUM LEVEL OF 1.2. KDUR GIVEN FOR POTASSIUM LEVEL OF 3.2. EDUCATION PROVIDED AND PT VERBALIZED UNDERSTANDING.
--- NOTE | 2021-07-20 11:00 | NUR ---
ENDORSED PT TO MARILYN MCKEON FOR CONTINUITY OF CARE. PT IS STABLE. PLAN OF CARE DISCUSSED.
--- NOTE | 2021-07-20 11:05 | NUR ---
ASSUMED CARE FROM ANDRES HUFFMAN. PT DROWSY, ORIENTED X 3. NO SIGNS OF PAIN AT THIS TIME, NO SOB NOTED, ON ROOM AIR, COVID POSITIVE, ON DROPLET PRECAUTIONS. WILL CONTINUE TO MONITOR PT.
--- NOTE | 2021-07-20 13:15 | NUR ---
PHYSICAL THERAPY ON GOING AT THE BEDSIDE.
--- NOTE | 2021-07-20 15:04 | NUR ---
DC PLANNING: PATIENT ADMITTED THROUGH THE ED, FOUND TO BE COVID +. SEEN BY [facility] WHO RECOMMENDS SNF FOR CONTINUED THERAPY, PATIENT IS HOMELESS AND HAS BEEN STAYING IN A MOTEL. THE PATIENT WAS REFERRED TO [facility] AND [facility], CLINICAL PACKET ALSO SENT TO [facility] FOR AUTHORIZATION OF PLACEMENT. CM WILL FOLLOW FOR NEEDS. Addendum: 07/21/21 at 1215 by Winifred Champagne CM DC PLANNING: CM SPOKE WITH CONCHITA AT [facility] ([phone]), ENDORSED THAT YIFAN AND [facility] GUTIERRE[facility] ARE ASKING ABOUT AN ANTONIO AND COVID RATES. CONCHITA CHECKED WITH HER [facility] SNF'S, NONE ARE ABLE TO ACCEPT COVID PATIENTS, SHE STATES THAT SHE WILL START AN ANTONIO WITH [facility] GUTIERREZ. CM WILL FOLLOW. Addendum: 07/21/21 at 1614 by Winifred Champagne CM DC PLANNING: PATIENT ACCEPTED TO [facility] ROOM 101 A, DR DOUGHERTY TO FOLLOW. TRANSPORT REQUESTED THROUGH [employer] CALL THE CAR ([phone] OPT 4 OPT 1), NUMBER TO CALL REPORT IS [phone]. CALL THE CAR WILL CALL THE NURSES STATION TO CONFIRM THE ETA AND COMPANY TO TRANSPORT. CM WILL FOLLOW.
[2021-07-20 17:00] VITALS: BP 108/69
[2021-07-20] MEDS: ACETAMINOPHEN 325 MG TAB PO PRN (17:48)
--- NOTE | 2021-07-20 17:50 | NUR ---
PT'S LATEST TEMP: 100.7 F, COOLING MEASURES STARTED. MEDICATED WITH TYLENOL. WILL MONITOR PT.
--- NOTE | 2021-07-20 19:15 | NUR ---
PT STILL EATING DINNER. NO SOB NOTED. NO COMPLAINTS MADE AT THIS TIME. WILL ENDORSE TO CONFIGURATION SPECIALIST NURSE FOR CONTINUITY OF CARE.
--- NOTE | 2021-07-20 19:30 | NUR ---
RECD. RESTING IN BED, AWAKE, A/OX2. RESPIRATION EVEN AND UNLABORED. IV OF NS AT 120 ML/HR INFUSING RIGHT UPPER ARM PICC LINE. REORIENTED TO HOSPITAL SETTING. CONFUSED AT TIMES BUT ABLE TO VERBALIZED NEEDS. INSTRUCTED TO CALL NURSE WHEN NEEDING HELP. NEEDS REINFORCEMENT. SAFETY MEASURES ENFORCED, BED IN THE LOWEST POSITION, SIDE RAILS UP. PUT BED ON ALARM. DENIES PAIN 0/10.
--- NOTE | 2021-07-20 20:28 | NUR ---
SCHEDULED MEDICATIONS FOR THE NIGHT ADMINISTERED. TOLERATED WELL.
--- NOTE | 2021-07-20 22:00 | NUR ---
Patient's Plan of Care was discussed and reviewed with PUBLIC HOUSING INTERVIEWER: BRENDA RICHEY
--- NOTE | 2021-07-20 22:30 | NUR ---
CHECKED PATIENT, JUST GET OUT OF BED WITHOUT CALLING NURSE. ASSISTED BACK TO BED, WEAK AND UNSTEADY. PUT BED ON ALARM. INSTRUCTED AGAIN TO STAY IN BED. UNCOOPERATIVE.
--- NOTE | 2021-07-21 | NUR ---
GET OUT OF BED AGAIN WITHOUT CALLING NURSE. ASSISTED BACK TO BED. PUT BED ALARM.
--- NOTE | 2021-07-21 01:30 | NUR ---
CHECKED PATIENT, RESTING IN BED COMFORTABLY, RESPIRATION EVEN AND UNLABORED.
--- NOTE | 2021-07-21 03:30 | NUR ---
WITH LARGE VOID, CLEANSED AND BEDDINGS, GOWN AND DIAPER CHANGED. MADE COMFORTABLE IN BED WITH WARM BLANKETS.
[2021-07-21 04:00] VITALS: BP 111/76
--- NOTE | 2021-07-21 05:30 | NUR ---
DIAPER CHANGED, INSTRUCTED NOT TO GET OUT OF BED WITHOUT NURSE. NEEDS REINFORCEMENT,
[2021-07-21] MEDS: PIPERACILLIN/TAZOBACTAM 3.375 GM in DEXTROSE 5% 50 ML IV SCH ×3 (05:32→18:32)
[2021-07-21] MEDS: LORazepam 1 MG TAB PO SCH ×3 (06:04→20:37)
--- NOTE | 2021-07-21 07:00 | NUR ---
NO FEVER NOTED DURING SHIFT. CONDITION REMAIN STABLE. WILL ENDORSE TO AM SHIFT NURSE FOR CONTINUITY OF CARE.
--- NOTE | 2021-07-21 07:30 | NUR ---
RECEIVED PT AAO WITH PERIODS OF CONFUSION. NO SOB NOTED, ON ROOM AIR. NO C/O PAIN AT THIS TIME. LUIS MANUEL PICC LINE PATENT AND INTACT. ON DROPLET ISOLATION FOR POSITIVE COVID. CHEST DIMINISHED AIR ENTRY TO THE BASES. ABDOMEN SOFT, BOWEL SOUNDS PRESENT. INSTRUCTED PT TO CALL FOR ASSISTANCE, CALL LIGHT WITHIN REACH, PT VERBALIZED PARTIAL UNDERSTANDING UNDERSTANDING.
[2021-07-21 08:30] VITALS: BP 111/76
[2021-07-21] MEDS: MULTIVITAMIN 1 TAB PO SCH (09:23)
[2021-07-21] MEDS: NACL 0.9% 1,000 ML IV SCH (09:23)
[2021-07-21] MEDS: ACETAMINOPHEN 325 MG TAB PO PRN (09:24)
[2021-07-21] MEDS: VITAMIN D 400 IU TAB PO SCH (09:24)
[2021-07-21] MEDS: chlordiazePOXIDE 25 MG CAP PO SCH ×3 (09:24→18:32)
[2021-07-21] MEDS: FOLIC ACID 1 MG TAB PO SCH (09:24)
[2021-07-21] MEDS: ASCORBIC ACID 500 MG TAB PO SCH (09:24)
[2021-07-21] MEDS: THIAMINE 100 MG TAB PO SCH (09:24)
[2021-07-21 16:58] VITALS: BP 120/85
--- NOTE | 2021-07-21 17:00 | NUR ---
REPORT GIVEN TO ALEXANDER AT [facility].
--- NOTE | 2021-07-21 17:30 | NUR ---
RECEIVED A CALL FROM [facility] ([place]) THAT THEY WILL CALL FOR ETA.
--- NOTE | 2021-07-21 19:15 | NUR ---
PT RESTING. NO SOB NOTED. NO SIGNS OF PAIN. WILL ENDORSE TO NEXT SHIFT NURSE TO CONTINUE WITH THE DISCHARGE PROCESS.
--- NOTE | 2021-07-21 19:30 | NUR ---
RECEIVED REPORT FROM DAY SHIFT NURSE FOR CONTINUITY OF CARE. PT TO BE DISCHARGED TO [facility] RM 110-A PER DR DOUGHERTY'S ORDER.
--- NOTE | 2021-07-21 20:30 | NUR ---
ALL HS MEDS GIVEN. PT TOLERATE IT WELL. PT DROWSY WITH SLURRED SPEECH. AT TIMES. ALL SAFETY MEASURES IN PLACE. CONTINUE TO MONITOR
--- NOTE | 2021-07-21 22:15 | NUR ---
PT UNABLE TO SIGN DISCHARGE PAPERS. PT LEFT PREMISES VIA [facility] AT 22:15 WITH ALL BELONGINGS. IN NAD.
[2021-07-21] MEDS ORDERED: SODIUM CHLORIDE 1 GM TAB PO SCH (22:25)
--- NOTE | 2021-07-22 08:54 | NUR ---
PHYSICAL THERAPY CO-SIGN The Physical Therapy Progress Notes documented by Postdoctoral Fellow have been reviewed. Reviewed/Co-Signed by: Sonal Valentine Documentation Done by: TAMICA WORRELL PTA Addendum: 07/22/21 at 0855 by Sonal Valentine PT Amended: Links added.
== END 2021-07-21 22:15 ==
LOC: MED 22:17 → MMU 07-15 07:15 → MTU 07-15 07:15
PROC: 02HV33Z Insertion of Infusion Device into Superior Vena Cava, Percutaneous Approach (ICD-10-PCS; principal; 2021-07-18)
DX: K81.9 Cholecystitis, unspecified (principal); U07.1 COVID-19; E43 Unspecified severe protein-calorie malnutrition; D68.9 Coagulation defect, unspecified; D69.6 Thrombocytopenia, unspecified; G31.2 Degeneration of nervous system due to alcohol; E87.1 Hypo-osmolality and hyponatremia; F10.10 Alcohol abuse, uncomplicated; G40.909 Epilepsy, unspecified, not intractable, without status epilepticus; J98.11 Atelectasis; K86.1 Other chronic pancreatitis; E87.6 Hypokalemia; D72.819 Decreased white blood cell count, unspecified; K70.31 Alcoholic cirrhosis of liver with ascites; D64.9 Anemia, unspecified; K82.8 Other specified diseases of gallbladder; R74.01 Elevation of levels of liver transaminase levels; D72.829 Elevated white blood cell count, unspecified; R26.81 Unsteadiness on feet; Z79.899 Other long term (current) drug therapy; Z68.27 Body mass index [BMI] 27.0-27.9, adult; Z71.41 Alcohol abuse counseling and surveillance of alcoholic; Z59.00 Homelessness unspecified
CPT/HCPCS: 36415; 71045; 74018; 76705; 78445; 80048; 80053; 80305; 81003; 83036; 83605; 83615; 83690; 83735; 83880; 84100; 84134; 84436; 84443; 85025; 85379; 85610; 85651; 85730; 86140; 87040; 87081; 93005; 96365; 96375; 97110; 97116; 97163-GP; 97164; 97530; 99285; G0482; J0696; J1644; J2001; J2060; J2270; J2543; J3475; J3480; J7060; Q0092

== ENCOUNTER 2021-12-08 23:41 | Emergency (ER) | payer MEDICAID ==
[~2021-12-08] VITALS: Ht 170.2 cm; Wt 74.8 kg
[2021-12-08 23:41] VITALS: BP 116/81
[~2021-12-08 23:41] MED LIST changes: -ACET-8386 PO; +ASPI-1205 PO; -DOCU-299 PO; -FLUO-402 PO; -IBUP-2213 PO; -IBUP-2217 PO; -LIB25 PO; +MAGN241.1 PO; -MULT-405 PO; -NORC10 PO; -PANT40EC PO; +POTA10TA70 PO; -SIME80CT27 PO
--- NOTE | 2021-12-08 23:45 | NUR ---
TO LOBBY,A/W BED , BROUGHT IN BY BLS TRANSPORT, WITH C/O BLOOD IN THE STOOL, ETOH, AND BODYACHES.
--- NOTE | 2021-12-09 00:18 | NUR ---
PT AMBULATED TO BED 01
[2021-12-09 00:30] VITALS: BP 134/86
[2021-12-09] MEDS ORDERED: ONDANSETRON 4 MG ODT PO ONE (00:55)
[2021-12-09] MEDS ORDERED: ACETAMINOPHEN 325 MG TAB PO ONE (00:55)
--- NOTE | 2021-12-09 01:00 | NUR ---
PATIENT REFUSED ALL MEDS AND LABS. PATIENT LEFT AGAINST ADVICE. MD AWARE AND NOTIFIED OF MEDICATION REFUSAL AND PATIENT DEMANDING TO LEAVE HOSPTIAL. PATIENT AMBULATORY WITH STEADY GAIT. MISSING TEETH UPON FIRST ENCOUNTER. NO IV ACCESS. AOX4. BELONGINGS RECONCILED WITH PATIENT AND WALKED TO LOBBY. SALESPERSON WOMEN'S DRESSES ATTEMPTED TO STOP PATIENT FROM LEAVING HOSPITAL FOR FURTHER CARE TWICE, BUT PATIENT STILL DECIDED TO LEAVE. MD AWARE.
== END 2021-12-09 01:20 | disposition left against medical advice (07) ==
LOC: MED 23:41
DX: K92.1 Melena (principal); M79.10 Myalgia, unspecified site; Z79.899 Other long term (current) drug therapy; Z79.82 Long term (current) use of aspirin
CPT/HCPCS: 99281; 99283

== ENCOUNTER 2022-02-17 22:13 | Emergency (ER) | payer MEDICAID ==
[~2022-02-17] VITALS: Ht 170.2 cm; Wt 77.1 kg
--- NOTE | 2022-02-17 22:15 | NUR ---
BIBA TAKEN TO BED #1
[2022-02-17 22:19] VITALS: BP 107/74
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
--- NOTE | 2022-02-17 22:50 | NUR ---
PT ATTEMPTED TO USE THE RESTROOM BUT STATED HE WAS UNABLE TO EITHER URINATE OR DEFICATE AT THIS TIME.
--- NOTE | 2022-02-17 23:23 | NUR ---
DR FIELD TALKING WITH PT
--- NOTE | 2022-02-17 23:42 | NUR ---
PT REFUSING LAB DRAW. DR. FIELD NOTIFIED.
--- NOTE | 2022-02-17 23:55 | NUR ---
Patient does not wish to proceed with medical care recommended by DR FIELD. Patient given information related to possible complications, up to and including , which could occur as a result of leaving hospital at this time. Patient verbalizes understanding of risks involved leaving against medical advice. Patient has signed AMA form.
== END 2022-02-17 23:55 | disposition left against medical advice (07) ==
LOC: MED 22:13
DX: K92.2 Gastrointestinal hemorrhage, unspecified (principal); R60.0 Localized edema; F10.10 Alcohol abuse, uncomplicated; Y90.9 Presence of alcohol in blood, level not specified
CPT/HCPCS: 99283

== ENCOUNTER 2022-02-28 10:56 | Emergency (ER) | payer MEDICAID ==
[~2022-02-28] VITALS: Ht 170.2 cm; Wt 72.6 kg
--- NOTE | 2022-02-28 10:58 | NUR ---
YAMEL Martinez, via gurney to bed 05.
[2022-02-28 11:10] VITALS: BP 105/68
--- NOTE | 2022-02-28 12:52 | NUR ---
XRAY AT BEDSIDE
--- NOTE | 2022-02-28 13:05 | NUR ---
52/M CASTRO FROM [facility]IN [facility]. PER EMS PATIENT CALLED 911 C/O BILATERAL LOWER LEG SWELLING X2 WEEKS, ALSO C/O BACK PAIN STATING HE FELL 3 DAYS AGO, DENIES HEAD OR NECK INJURY, DENIES LOC. PATIENT ADMITS TO DRINKING ONE BEER TODAY, DENIES CP, SOB OR DRUG USE.
[2022-02-28 13:15] LABS: BASOPHILS % (AUTO) 0.7 % (0.0-2.0); EOSINOPHILS % (AUTO) 0.4 % (0.0-4.0); HEMATOCRIT 24.2 % (36-52); HEMOGLOBIN 7.8 g/dL (12.0-18.0); LYMPHOCYTES # (AUTO) 1.3 K/uL (2.0-11.5); LYMPHOCYTES % (AUTO) 32.6 % (20.5-51.1); MEAN CORPUSCULAR HEMOGLOBIN 26 pg (27-31); MEAN CORPUSCULAR HGB CONC 32 g/dL (33-37); MEAN CORPUSCULAR VOLUME 82.2 fL (80-94); MONOCYTES # (AUTO) 0.3 K/uL (0.8-1.0); MONOCYTES % (AUTO) 7.6 % (1.7-9.3); NEUTROPHILS # (AUTO) 2.3 K/uL (1.8-7.7); NEUTROPHILS % (AUTO) 58.7 % (42.2-75.2); PLATELET COUNT (AUTO) 40 K/uL (140-450); RED BLOOD CELL COUNT(AUTO) 2.94 MIL/uL (4.20-6.10); RED CELL DISTRIBUTION WIDTH 21.6 % (11.6-13.7); WHITE BLOOD COUNT (AUTO) 3.9 K/uL (4.8-10.8)
[2022-02-28] MEDS ORDERED: KETOROLAC 30 MG/ML VIAL IM ONE (13:15)
--- NOTE | 2022-02-28 13:27 | NUR ---
US AT BEDSIDE
[2022-02-28 13:36] LABS: ALBUMIN 1.7 g/dL (3.4-5.0); CARBON DIOXIDE 25.9 mmol/L (21-32); CREATININE 0.6 mg/dL (0.6-1.3); TOTAL BILIRUBIN 0.8 mg/dL (0.0-1.0)
[2022-02-28] MEDS ORDERED: CEPH-588 PO (13:42)
[2022-02-28 13:43] LABS: POTASSIUM 2.9 mmol/L (3.5-5.1)
[2022-02-28] MEDS ORDERED: POTASSIUM CHLORIDE 10 MEQ TABER PO ONE ×3 (13:45→13:55)
[2022-02-28 14:27] VITALS: BP 140/89
--- NOTE | 2022-02-28 14:27 | NUR ---
Patient discharged with v/s stable. Written and verbal after care instructions ABOUT CELLULITIS AND HYPOKALEMIA given and explained. Patient alert, oriented and verbalized understanding of instructions. Ambulatory with steady gait. All questions addressed prior to discharge. ID band removed. Patient advised to follow up with PMD. Rx of KEFLEX given. Patient educated on indication of medication including possible reaction and side effects. Opportunity to ask questions provided and answered.
== END 2022-02-28 14:27 | disposition home or self-care (01) ==
LOC: MED 10:56
DX: L03.116 Cellulitis of left lower limb (principal); L03.115 Cellulitis of right lower limb
CPT/HCPCS: 36415; 71045; 80053; 83880; 84484; 85025; 93005; 93970; 96372; 99285; J1885; Q0092

== ENCOUNTER 2022-03-03 14:48 | Inpatient (IN) | payer MEDICAID ==
[~2022-03-03] VITALS: Ht 170.2 cm; Wt 51.7 kg
[~2022-03-03 14:48] MED LIST changes: +CEPH-588 PO
[2022-03-03 14:53] VITALS: BP 89/55
[2022-03-03] MEDS ORDERED: KETOROLAC 15 MG/ML VIAL IVP ONE (15:05)
[2022-03-03 15:24] LABS: BASOPHILS # (AUTO) 0.1 K/uL (0.00-0.22); EOSINOPHILS # (AUTO) 0.1 K/uL (0-0.4); EOSINOPHILS % (AUTO) 2.1 % (0.0-4.0); HEMATOCRIT 20.9 % (36-52); LYMPHOCYTES # (AUTO) 1.6 K/uL (2.0-11.5); LYMPHOCYTES % (AUTO) 42.7 % (20.5-51.1); MEAN CORPUSCULAR HEMOGLOBIN 27 pg (27-31); MEAN CORPUSCULAR HGB CONC 32 g/dL (33-37); MEAN CORPUSCULAR VOLUME 81.9 fL (80-94); MONOCYTES # (AUTO) 0.4 K/uL (0.8-1.0); MONOCYTES % (AUTO) 11.2 % (1.7-9.3); NEUTROPHILS # (AUTO) 1.6 K/uL (1.8-7.7); PLATELET COUNT (AUTO) 52 K/uL (140-450); RED BLOOD CELL COUNT(AUTO) 2.55 MIL/uL (4.20-6.10); RED CELL DISTRIBUTION WIDTH 22.5 % (11.6-13.7); WHITE BLOOD COUNT (AUTO) 3.8 K/uL (4.8-10.8)
[2022-03-03 15:45] LABS: ALBUMIN 1.6 g/dL (3.4-5.0); ANION GAP 10.5 (8-16); CARBON DIOXIDE 26.8 mmol/L (21-32); CREATININE 0.7 mg/dL (0.6-1.3); HEMOGLOBIN 6.8 g/dL (12.0-18.0); POTASSIUM 3.3 mmol/L (3.5-5.1)
[2022-03-03 15:47] LABS: ACETAMINOPHEN < 0.5 ug/ml (10-30)
[2022-03-03 15:48] LABS: SALICYLATE < 2.8 mg/dL (2.8-20.0)
[2022-03-03] MEDS ORDERED: ceFAZolin 1,000 MG VIAL ONE (16:01)
[2022-03-03] MEDS ORDERED: POTASSIUM CHLORIDE 10 MEQ TABER PO ONE (16:15)
[2022-03-03] MEDS ORDERED: NACL 0.9% 1,000 ML IV ONE ×2 (16:15)
[2022-03-03] MEDS ORDERED: KCL 20 MEQ/WATER INJ PREMIX 200 ML IV ONE (16:15)
[2022-03-03 16:56] LABS: PROTHROMBIN TIME 17.6 secs (10.8-13.4)
[2022-03-03 17:27] LABS: APPEARANCE,URINE CLEAR (CLEAR); BILIRUBIN,URINE NEGATIVE (NEGATIVE); BLOOD, URINE NEGATIVE (NEGATIVE); COLOR,URINE YELLOW (YELLOW); LEUKOCYTE ESTERASE ,URINE TRACE (NEGATIVE); NITRITE, URINE NEGATIVE (NEGATIVE); UGLUCOSE NEGATIVE (NEGATIVE)
[2022-03-03 17:41] LABS: BARBITURATE, URINE NEGATIVE ng/ml (NEG <=200); BENZODIAZEPINE, URINE NEGATIVE ng/mL (NEG <=200); CANNABINOID, URINE NEGATIVE ng/mL (NEG <=50); COCAINE, URINE NEGATIVE ng/mL (NEG <=300); OPIATE, URINE NEGATIVE ng/mL (NEG <=2000); PHENCYCLIDINE SCREEN,URINE NEGATIVE ng/mL (NEG <=25)
[2022-03-03 17:47] LABS: OTHER CASTS, URINE None Seen /LPF (None Seen); RBC,URINE 0-5 /HPF (0-5); WBC,URINE 0-5 /HPF (0-5)
[2022-03-03] MEDS ORDERED: DOCUSATE SODIUM 100 MG GELCAP PO PRN (19:15)
[2022-03-03] MEDS ORDERED: KCL 20 MEQ/WATER INJ PREMIX 200 ML IV PRN (19:15)
[2022-03-03] MEDS ORDERED: POTASSIUM CHLORIDE 10 MEQ TABER PO PRN (19:15)
[2022-03-03] MEDS ORDERED: ZOLPIDEM 5 MG TAB PO PRN (19:15)
[2022-03-03] MEDS ORDERED: ONDANSETRON 4 MG/2 ML VIAL IM/IVP PRN (19:15)
[2022-03-03] MEDS ORDERED: guaiFENesin DM 200/20 MG-10 ML 10 ML UDC PO PRN (19:15)
[2022-03-03 20:05] LABS: MAGNESIUM 1.7 mg/dL (1.8-2.4); PHOSPHORUS 3.5 mg/dL (2.5-4.9)
[2022-03-03 20:30] VITALS: BP 98/68
[2022-03-03 21:14] LABS: PROTHROMBIN TIME 18.2 secs (10.8-13.4)
[2022-03-03] MEDS: NACL 0.9% 1,000 ML IV SCH (23:07)
[2022-03-03] MEDS ORDERED: CLINDAMYCIN 600 MG/4 ML VIAL ONE (23:23)
[2022-03-03] MEDS: CLINDAMYCIN 600 MG in DEXTROSE 5% 50 ML IV SCH (23:28)
[2022-03-04] VITALS: BP 100/70
[2022-03-04] MEDS: HYDROcodone/APAP 7.5/325 MG 1 TAB PO PRN ×2 (02:51→11:36)
[2022-03-04 04:00] VITALS: BP 102/70
[2022-03-04] MEDS ORDERED: CLINDAMYCIN 600 MG/4 ML VIAL ONE (04:47)
[2022-03-04] MEDS: CLINDAMYCIN 600 MG in DEXTROSE 5% 50 ML IV SCH ×3 (06:00→21:16)
[2022-03-04] MEDS: LORazepam 2 MG/ML VIAL IVP PRN ×2 (06:31→15:22)
[2022-03-04] MEDS: ACETAMINOPHEN 325 MG TAB PO PRN (06:31)
[2022-03-04 07:07] LABS: FERRITIN 37 ng/mL (30-400); TRANSFERRIN 195 mg/dL (177-329)
[2022-03-04 07:18] LABS: BASOPHILS # (AUTO) 0.1 K/uL (0.00-0.22); BASOPHILS % (AUTO) 2.6 % (0.0-2.0); EOSINOPHILS # (AUTO) 0.1 K/uL (0-0.4); EOSINOPHILS % (AUTO) 1.8 % (0.0-4.0); HEMATOCRIT 25.5 % (36-52); HEMOGLOBIN 8.2 g/dL (12.0-18.0); LYMPHOCYTES # (AUTO) 1.7 K/uL (2.0-11.5); LYMPHOCYTES % (AUTO) 43.1 % (20.5-51.1); MEAN CORPUSCULAR HEMOGLOBIN 27 pg (27-31); MEAN CORPUSCULAR HGB CONC 32 g/dL (33-37); MEAN CORPUSCULAR VOLUME 83.7 fL (80-94); MONOCYTES # (AUTO) 0.4 K/uL (0.8-1.0); MONOCYTES % (AUTO) 11.2 % (1.7-9.3); NEUTROPHILS # (AUTO) 1.6 K/uL (1.8-7.7); NEUTROPHILS % (AUTO) 41.3 % (42.2-75.2); PLATELET COUNT (AUTO) 50 K/uL (140-450); RED BLOOD CELL COUNT(AUTO) 3.04 MIL/uL (4.20-6.10); RED CELL DISTRIBUTION WIDTH 21.4 % (11.6-13.7); WHITE BLOOD COUNT (AUTO) 3.9 K/uL (4.8-10.8)
[2022-03-04 08:00] VITALS: BP 95/66
[2022-03-04] MEDS: PANTOPRAZOLE 40 MG TABEC PO SCH (08:33)
[2022-03-04] MEDS: FERROUS SULFATE 325 MG TABEC PO SCH ×3 (08:33→16:40)
[2022-03-04] MEDS ORDERED: PANTOPRAZOLE 40 MG INJ VIAL IVP SCH (09:00)
[2022-03-04] MEDS: NACL 0.9% 1,000 ML IV SCH (11:36)
[2022-03-04 12:50] LABS: ALBUMIN 1.5 g/dL (3.4-5.0); ANION GAP 8.4 (8-16); CARBON DIOXIDE 27.4 mmol/L (21-32); CREATININE 0.7 mg/dL (0.6-1.3); POTASSIUM 3.8 mmol/L (3.5-5.1)
[2022-03-04] MEDS: DEXT 5% /NACL 0.9% 1,000 ML IV SCH (15:10)
[2022-03-04] MEDS ORDERED: THIAMINE 100 MG TAB PO SCH (15:12)
[2022-03-04] MEDS ORDERED: PHYTONADIONE 10 MG in NACL 0.9% 50 ML IV SCH (15:30)
[2022-03-04 16:00] VITALS: BP 106/74
[2022-03-04 16:27] LABS: BARBITURATE, URINE NEGATIVE ng/ml (NEG <=200); BENZODIAZEPINE, URINE NEGATIVE ng/mL (NEG <=200); CANNABINOID, URINE NEGATIVE ng/mL (NEG <=50); COCAINE, URINE NEGATIVE ng/mL (NEG <=300); OPIATE, URINE POSITIVE ng/mL (NEG <=2000); PHENCYCLIDINE SCREEN,URINE NEGATIVE ng/mL (NEG <=25)
[2022-03-04] MEDS: chlordiazePOXIDE 25 MG CAP PO SCH (16:40)
[2022-03-04] MEDS: PROPRANOLOL 20 MG TAB PO SCH (16:41)
[2022-03-04 20:00] VITALS: BP 95/69
[2022-03-04] MEDS: LACTULOSE 20 GM/30 ML UDC PO SCH (21:00)
[2022-03-05] VITALS: BP 108/77
[2022-03-05] MEDS: DEXT 5% /NACL 0.9% 1,000 ML IV SCH ×3 (01:10→21:10)
[2022-03-05] MEDS: LORazepam 2 MG/ML VIAL IVP PRN ×2 (03:43→20:27)
[2022-03-05 04:00] VITALS: BP 110/62
[2022-03-05] MEDS: CLINDAMYCIN 600 MG in DEXTROSE 5% 50 ML IV SCH ×3 (05:21→20:07)
[2022-03-05 08:00] VITALS: BP 108/77
[2022-03-05] MEDS: FERROUS SULFATE 325 MG TABEC PO SCH ×3 (08:58→17:45)
[2022-03-05] MEDS: chlordiazePOXIDE 25 MG CAP PO SCH ×3 (08:58→17:45)
[2022-03-05] MEDS: THIAMINE 100 MG TAB PO SCH (08:59)
[2022-03-05] MEDS: PANTOPRAZOLE 40 MG TABEC PO SCH (08:59)
[2022-03-05] MEDS: PROPRANOLOL 20 MG TAB PO SCH ×3 (08:59→17:45)
[2022-03-05] MEDS: LACTULOSE 20 GM/30 ML UDC PO SCH ×2 (09:00→20:08)
[2022-03-05] MEDS: HYDROcodone/APAP 7.5/325 MG 1 TAB PO PRN (09:07)
[2022-03-05 12:00] VITALS: BP 94/67
[2022-03-05] MEDS ORDERED: LIB25 PO (13:06)
[2022-03-05] MEDS ORDERED: PANT40EC56 PO (13:06)
[2022-03-05] MEDS ORDERED: PROP20TA29 PO (13:06)
[2022-03-05] MEDS ORDERED: THIA-34 PO (13:06)
[2022-03-05] MEDS ORDERED: FER325 PO (13:06)
[2022-03-05] MEDS ORDERED: CLIN150C1 PO (13:06)
[2022-03-05] MEDS ORDERED: LACT10SO11 PO (13:06)
[2022-03-05 16:00] VITALS: BP 113/83
[2022-03-05 20:00] VITALS: BP 107/77
[2022-03-06] VITALS: BP 94/67
[2022-03-06] MEDS: DEXT 5% /NACL 0.9% 1,000 ML IV SCH (00:10)
[2022-03-06 04:00] VITALS: BP 105/69
[2022-03-06] MEDS: CLINDAMYCIN 600 MG in DEXTROSE 5% 50 ML IV SCH ×3 (04:15→20:20)
[2022-03-06 08:00] VITALS: BP 98/64
[2022-03-06] MEDS: PROPRANOLOL 20 MG TAB PO SCH ×3 (09:00→16:47)
[2022-03-06] MEDS: THIAMINE 100 MG TAB PO SCH (09:27)
[2022-03-06] MEDS: PANTOPRAZOLE 40 MG TABEC PO SCH (09:27)
[2022-03-06] MEDS: FERROUS SULFATE 325 MG TABEC PO SCH ×2 (09:27→13:12)
[2022-03-06] MEDS: LACTULOSE 20 GM/30 ML UDC PO SCH ×3 (09:28→16:48)
[2022-03-06 10:01] LABS: BASOPHILS % (AUTO) 0.9 % (0.0-2.0); EOSINOPHILS # (AUTO) 0.1 K/uL (0-0.4); EOSINOPHILS % (AUTO) 2.3 % (0.0-4.0); HEMATOCRIT 23.8 % (36-52); HEMOGLOBIN 7.8 g/dL (12.0-18.0); LYMPHOCYTES # (AUTO) 1.1 K/uL (2.0-11.5); LYMPHOCYTES % (AUTO) 27.2 % (20.5-51.1); MEAN CORPUSCULAR HEMOGLOBIN 27 pg (27-31); MEAN CORPUSCULAR HGB CONC 33 g/dL (33-37); MEAN CORPUSCULAR VOLUME 82.9 fL (80-94); MONOCYTES # (AUTO) 0.5 K/uL (0.8-1.0); MONOCYTES % (AUTO) 13.5 % (1.7-9.3); NEUTROPHILS # (AUTO) 2.2 K/uL (1.8-7.7); NEUTROPHILS % (AUTO) 56.1 % (42.2-75.2); PLATELET COUNT (AUTO) 93 K/uL (140-450); RED BLOOD CELL COUNT(AUTO) 2.87 MIL/uL (4.20-6.10); RED CELL DISTRIBUTION WIDTH 22.8 % (11.6-13.7); WHITE BLOOD COUNT (AUTO) 3.9 K/uL (4.8-10.8)
[2022-03-06] MEDS ORDERED: LORazepam 2 MG/ML VIAL IVP PRN (10:10)
[2022-03-06 10:23] LABS: ALBUMIN 1.2 g/dL (3.4-5.0); ANION GAP 6.7 (8-16); CARBON DIOXIDE 24.8 mmol/L (21-32); CREATININE 0.7 mg/dL (0.6-1.3); POTASSIUM 3.5 mmol/L (3.5-5.1)
[2022-03-06] MEDS ORDERED: PHYTONADIONE 10 MG in NACL 0.9% 50 ML IV SCH (10:45)
[2022-03-06 12:00] VITALS: BP 112/78
[2022-03-06 16:00] VITALS: BP 106/76
[2022-03-06 20:00] VITALS: BP 98/64
[2022-03-06] MEDS: ACETAMINOPHEN 325 MG TAB PO PRN (20:20)
[2022-03-07] VITALS: BP 128/85
[2022-03-07] MEDS: DEXT 5% /NACL 0.9% 1,000 ML IV SCH (00:30)
[2022-03-07 04:00] VITALS: BP 112/76
[2022-03-07] MEDS: CLINDAMYCIN 600 MG in DEXTROSE 5% 50 ML IV SCH ×2 (04:06→12:49)
[2022-03-07 08:00] VITALS: BP 105/74
[2022-03-07] MEDS: THIAMINE 100 MG TAB PO SCH (09:07)
[2022-03-07] MEDS: PROPRANOLOL 20 MG TAB PO SCH ×2 (09:07→12:48)
[2022-03-07] MEDS: FERROUS SULFATE 325 MG TABEC PO SCH (09:07)
[2022-03-07] MEDS: LACTULOSE 20 GM/30 ML UDC PO SCH ×3 (09:07→17:00)
[2022-03-07] MEDS: PANTOPRAZOLE 40 MG TABEC PO SCH (09:07)
[2022-03-07 12:00] VITALS: BP 113/63
[2022-03-07 16:00] VITALS: BP 122/68
== END 2022-03-07 18:15 | disposition home or self-care (01) | DRG 720 ==
LOC: MED 14:48 → MTU 19:15
PROVIDERS: ADMIT Student in an Organized Health Care Education/Training Program; ATTEND Student in an Organized Health Care Education/Training Program
PROC: 30233N1 Transfusion of Nonautologous Red Blood Cells into Peripheral Vein, Percutaneous Approach (ICD-10-PCS; principal; 2022-03-04)
DX: A41.9 Sepsis, unspecified organism (principal); E43 Unspecified severe protein-calorie malnutrition; D68.4 Acquired coagulation factor deficiency; D68.59 Other primary thrombophilia; E72.20 Disorder of urea cycle metabolism, unspecified; D63.8 Anemia in other chronic diseases classified elsewhere; K72.90 Hepatic failure, unspecified without coma; E87.1 Hypo-osmolality and hyponatremia; K74.60 Unspecified cirrhosis of liver; Z20.822 Contact with and (suspected) exposure to COVID-19; E11.9 Type 2 diabetes mellitus without complications; Y90.9 Presence of alcohol in blood, level not specified; F10.129 Alcohol abuse with intoxication, unspecified; R65.20 Severe sepsis without septic shock; Z59.00 Homelessness unspecified; Z79.82 Long term (current) use of aspirin; Z79.899 Other long term (current) drug therapy; Z68.1 Body mass index [BMI] 19.9 or less, adult
CPT/HCPCS: 36415; 36430; 71045; 76700; 80053; 80305; 81001; 82140; 82150; 82550; 82553; 82607; 82728; 82746; 83540; 83605; 83690; 83735; 83880; 84100; 84484; 85025; 85045; 85610; 85730; 86886; 86900; 86901; 86920; 87040; 87081; 93005; 96365; 96368; 96375; 97112; 97116; 99291; G0480; G0482; J0690; J1885; J2060; J3430; J3480; J3490; J7060; P9016; Q0092

== ENCOUNTER 2022-12-11 19:11 | Emergency (ER) | payer MEDICAID ==
[~2022-12-11] VITALS: Ht 170.2 cm; Wt 54.4 kg
[~2022-12-11 19:11] MED LIST changes: -CEPH-588 PO; +CLIN150C1 PO; +FER325 PO; +LACT10SO11 PO; +LIB25 PO; +PANT40EC56 PO; -POTA10TA70 PO; +PROP20TA29 PO; +THIA-34 PO
[2022-12-11 19:20] VITALS: BP 115/62
--- NOTE | 2022-12-11 20:12 | NUR ---
Blood for labwork drawn by sail finisher machine. Patient tolerated well.
[2022-12-11 20:24] LABS: BASOPHILS # (AUTO) 0.2 K/uL (0.00-0.22); BASOPHILS % (AUTO) 2.7 % (0.0-2.0); EOSINOPHILS # (AUTO) 0.2 K/uL (0-0.4); EOSINOPHILS % (AUTO) 2.6 % (0.0-4.0); HEMATOCRIT 30.3 % (36-52); HEMOGLOBIN 10.1 g/dL (12.0-18.0); LYMPHOCYTES % (AUTO) 34.5 % (20.5-51.1); MEAN CORPUSCULAR HEMOGLOBIN 32 pg (27-31); MEAN CORPUSCULAR HGB CONC 33 g/dL (33-37); MEAN CORPUSCULAR VOLUME 95.8 fL (80-94); MONOCYTES # (AUTO) 0.4 K/uL (0.8-1.0); MONOCYTES % (AUTO) 7.5 % (1.7-9.3); NEUTROPHILS # (AUTO) 3.1 K/uL (1.8-7.7); NEUTROPHILS % (AUTO) 52.7 % (42.2-75.2); PLATELET COUNT (AUTO) 116 K/uL (140-450); RED BLOOD CELL COUNT(AUTO) 3.16 MIL/uL (4.20-6.10); RED CELL DISTRIBUTION WIDTH 18.3 % (11.6-13.7); WHITE BLOOD COUNT (AUTO) 5.9 K/uL (4.8-10.8)
[2022-12-11 20:45] LABS: PROTHROMBIN TIME 16.5 secs (10.8-13.4)
[2022-12-11 20:46] LABS: ALBUMIN 1.8 g/dL (3.4-5.0); ANION GAP 8.6 (8-16); CARBON DIOXIDE 30.4 mmol/L (21-32); CREATININE 0.6 mg/dL (0.6-1.3); TOTAL BILIRUBIN 1.3 mg/dL (0.0-1.0)
[2022-12-11] MEDS ORDERED: LIDOCAINE 5% 1 EA PATCH TP SCH (22:05)
[2022-12-11] MEDS ORDERED: ACETAMINOPHEN EXTRA STRENGTH 500 MG TAB PO ONE (22:05)
[2022-12-11] MEDS ORDERED: KETOROLAC 30 MG/ML VIAL IM ONE (22:05)
[2022-12-11] MEDS ORDERED: LID5T TP (22:10)
[2022-12-11] MEDS ORDERED: BENC TP (22:10)
[2022-12-11] MEDS ORDERED: IBUP-2213 PO (22:10)
--- NOTE | 2022-12-11 22:11 | NUR ---
Dr. Armendariz explained results and treatment plans.
[2022-12-11 22:37] VITALS: BP 114/62
--- NOTE | 2022-12-11 22:37 | NUR ---
Patient discharged with v/s stable. Written and verbal after care instructions given and explained. Patient alert, oriented and verbalized understanding of instructions. Wheel Chair Assisted with to car. All questions addressed prior to discharge. ID band removed. Patient advised to follow up with PMD. Rx of Benadryl, Ibuprofen and Lidocaine patch given. Patient educated on indication of medication including possible reaction and side effects. Opportunity to ask questions provided and answered.
== END 2022-12-11 22:37 | disposition home or self-care (01) ==
LOC: MED 19:11
DX: M54.50 Low back pain, unspecified (principal); R10.9 Unspecified abdominal pain; R21 Rash and other nonspecific skin eruption; F10.129 Alcohol abuse with intoxication, unspecified; Z59.00 Homelessness unspecified; Y90.9 Presence of alcohol in blood, level not specified; W18.30XA Fall on same level, unspecified, initial encounter; Y93.89 Activity, other specified; Y92.89 Other specified places as the place of occurrence of the external cause; Y99.8 Other external cause status
CPT/HCPCS: 36415; 80053; 82140; 83690; 85025; 85610; 85730; 99283; J1885